=== PATIENT | female | born 1985 | race Caucasian/White ===

== ENCOUNTER 2022-12-24 08:25 | Emergency (ER) | payer OTHER, MEDICAID, SELFPAY ==
[2022-12-24] VITALS (33 sets, daily range): BP systolic 101–147; BP diastolic 56–83; PULSE 44–75; RESP 16–25; TEMP 36.4; O2SAT 97–100; BMI 37.8
[2022-12-24] MEDS: ONDANSETRON 4 MG/2 ML INJ IV (09:00)
[2022-12-24 09:14] LABS: Add Manual Diff / Slide Review NO; Basophils Absolute Auto 0 /uL (0-100); Basophils Percent Auto 0.3 % (0-2); Eosinophils Absolute Auto 0 /uL (0-450); Eosinophils Percent Auto 0.1 % (2-4); Hematocrit 40.4 % (36-46); Hemoglobin 13.3 g/dL (12.0-16.0); Lymphocytes Absolute Auto 1700 /uL (1100-4500); Lymphocytes Percent Auto 14.6 % (25-40); Mean Corpuscular HGB Conc 32.9 % (30-36); Mean Corpuscular Hemoglobin 27.5 PG (26-34); Mean Corpuscular Volume 83.6 fL (80-100); Monocytes Absolute Auto 800 /uL (0-900); Monocytes Percent Auto 6.7 % (3-14); Neutrophils Absolute Auto 8900 /uL (1500-7000); Neutrophils Percent Auto 78.3 % (50-75); Platelet Count 320 X10^3/uL (150-400); Red Blood Cell Count 4.84 X10^6/uL (4.0-5.2); Red Cell Distribution Width 15.2 % (11.6-14.8); White Blood Cell Count 11.4 X10^3/uL (4.5-11.0)
[2022-12-24 09:24] LABS: Bacteria Urine None Seen; Culture Indicated Urine Cult Not Indicated; RBC Urine None Seen (0-5/HPF); Squamous Epithelial Cell Urine 1-5 /HPF (0-5/HPF); WBC Urine 0-1/HPF (0-5/HPF)
[2022-12-24 09:25] LABS: Alanine Aminotransferase 37 IU/L (<35); Albumin 4.9 g/dL (3.5-5.0); Albumin Globulin Ratio 1.4 (1.0-2.8); Alkaline Phosphatase 67 U/L (38-126); Aspartate Aminotransferase 33 IU/L (14-36); BUN Creatinine Ratio 20.5 (6-22); Bilirubin Total 1.1 mg/dL (0.2-1.3); Blood Urea Nitrogen 16 mg/dL (7-17); Calcium 10.3 mg/dL (8.4-10.2); Carbon Dioxide 23 mmol/L (22-32); Chloride 103 mmol/L (98-107); Estimated Glomerular Filt Rate > 60 mL/min (>60); Globulin 3.6 g/dL (1.7-4.1); Glucose 94 mg/dL (70-100); HEMOLYSIS < 15 (0-50); Lipase 92 U/L (23-300); Potassium 3.6 mmol/L (3.4-5.1); Sodium 140 mmol/L (137-145); Total Protein 8.5 g/dL (6.3-8.2)
--- NOTE | 2022-12-24 09:40 | PC.NURSE ---
Pt HR 50, physician aware, no new orders.
--- NOTE | 2022-12-24 09:44 | ED.NAVMDI ---
HPI - Nausea/Vomiting/Diarrhea General Chief complaint: Nausea/Vomiting/Diarrhea Stated complaint: T-2 D/N/chills/shaking Time Seen by Provider: 12/24/22 08:47 Source: patient and family Mode of arrival: Ambulatory Limitations: no limitations History of Present Illness HPI Narrative: The patient has been ill for about 6 weeks. She complains of intermittent dizziness. She has abdominal cramping, occasional emesis. She is having regular diarrhea. There is no hematochezia. She is intermittent GI cramping. Her PCM has managed anemia. She is no other significant medical issues. She is slight ear discomfort, no chronic sinus problems or ENT problems. She is no chest pain or palpitations. She is no chronic GI issues, no history of PUD. She is status post cholecystectomy several months ago. She is no travel. She is not been on antibiotics. She is currently finishing her menstrual cycle. She is slight lower abdominal discomfort. She has no back pain, dysuria or hematuria. She feels like she is tingling all over. Related Data Previous Rx's Medication Instructions Recorded dicyclomine 20 mg tablet 20 mg PO TID #90 tabs 12/24/22 meclizine 25 mg tablet 25 mg PO QID PRN dizziness #60 tabs 12/24/22 Review of Systems Review of Systems ROS Unobtainable: All systems reviewed & are unremarkable except as noted in HPI and below Constitutional Constitutional: Denies anorexia, Denies body ache(s), Denies chills, Denies headache(s), Denies night sweats, Reports poor appetite and Reports weakness Eyes Eyes: Denies change in vision ENT Ears, Nose, Mouth, and Throat: Denies dizziness, Denies headache(s), Denies sinus pressure and Denies sore throat Cardiovascular Cardiovascular: Denies chest pain and Denies irregular heart rhythm Respiratory Respiratory: Denies chest congestion and Denies cough Gastrointestinal Gastrointestinal: Reports as per HPI Genitourinary Genitourinary: Denies dysuria and Denies urinary urgency Musculoskeletal Musculoskeletal: Denies back pain and Denies numbness Integumentary/Breasts Skin/Breast: Denies pruritus and Denies erythema Neurologic Neurologic: Denies dizziness, Denies headache(s), Denies numbness and Reports weakness Endocrine Endocrine: Reports other Hematologic/Lymphatic On Anticoagulants: No Patient History Medical History (Updated 12/24/22 @ 18:42 by Tesfaye Jain MD) Cholecystectomy planned Social History Smoking Status: Never smoker Smoking Status: Never smoker alcohol intake frequency: holidays/special occasions only Substance Use Type: marijuana Exam Initial Vital Signs Initial Vital Signs: Vital Signs Pulse Rate 73 12/24/22 08:33 Blood Pressure 142/81 H 12/24/22 08:33 Pulse Oximetry 100 12/24/22 08:33 Const General: cooperative, healthy appearing, in distress and anxious HENMT Head: normal to inspection, normocephalic and atraumatic Ears: hearing grossly normal bilaterally, external ears normal and TM's normal bilaterally Face and sinus: normal facial exam and sinuses nontender Mouth: oral mucosae normal Throat: posterior oropharynx normal Eyes General: Yes appearance normal, both eyes and all related structures Neck Neck: No lymphadenopathy Chest Chest: normal inspection of the chest Resp Effort & Inspection: normal respiratory effort Auscultation: clear to auscultation bilaterally Cardio Palpation: normal PMI Rate: regular rate Rhythm: regular rhythm Heart Sounds: S1 normal, S2 normal and no murmurs GI Other: Diffuse, mild abdominal discomfort. No guarding or rebound. Normal to hyperactive bowel sounds. No masses. Back/Spine/Pelvis Back: No CVA tenderness Skin General: no rashes or lesions noted Neuro General: patient alert, patient awake, patient oriented x3 and no focal motor deficits Cranial Nerves: CN's II-XI intact bilaterally Extrem General: normal to inspection Psych Appearance: grossly normal Mood: anxious mood Course Orders Ordered: ED Orders 12/24/22 09:57 CT abdomen pelvis w con Stat 12/24/22 13:49 GI Panel (Film Array) Stat Discontinued Medications Sodium Chloride (Normal Saline 0.9%) 500 mls @ 1,000 mls/hr IV BOLUS ONE Stop: 12/24/22 10:26 Last Infusion: 12/24/22 11:58 Dose: Infused Documented By: Admin: 12/24/22 10:00 Dose: 1,000 mls/hr Documented By: LEON Meclizine HCl (Meclizine Hcl 12.5 Mg Tablet) 50 mg PO NOW ONE Stop: 12/24/22 09:58 Last Admin: 12/24/22 10:24 Dose: 50 mg Documented By: LEON Ondansetron HCl (Ondansetron 4 Mg/2 Ml Inj) 4 mg IV NOW PRN PRN Reason: Nausea And Vomiting Last Admin: 12/24/22 09:00 Dose: 4 mg Documented By: LEON Vital Signs Vital signs: Vital Signs - 8 hr 12/24/22 11:00 12/24/22 11:01 12/24/22 11:01 Pulse Rate 46 L 44 L Respiratory Rate 24 24 Blood Pressure 128/65 Pulse Oximetry 100 100 Oxygen Delivery Method 12/24/22 11:30 12/24/22 11:33 12/24/22 11:33 Pulse Rate 58 L 54 L Respiratory Rate 22 22 Blood Pressure 116/58 L Pulse Oximetry 100 100 Oxygen Delivery Method 12/24/22 11:38 12/24/22 11:38 12/24/22 11:45 Pulse Rate 51 L Respiratory Rate 24 Blood Pressure 117/60 126/59 L Pulse Oximetry 100 Oxygen Delivery Method 12/24/22 11:45 12/24/22 11:59 12/24/22 12:00 Pulse Rate 60 55 L Respiratory Rate 21 23 Blood Pressure 120/59 L Pulse Oximetry 100 100 Oxygen Delivery Method 12/24/22 12:00 12/24/22 12:15 12/24/22 12:15 Pulse Rate 58 L 55 L Respiratory Rate Blood Pressure 120/61 Pulse Oximetry 100 100 Oxygen Delivery Method 12/24/22 12:30 12/24/22 12:31 12/24/22 12:31 Pulse Rate 58 L 54 L Respiratory Rate 24 Blood Pressure 133/66 Pulse Oximetry 100 100 Oxygen Delivery Method 12/24/22 12:45 12/24/22 12:45 12/24/22 12:45 Pulse Rate 56 L 62 Respiratory Rate 18 Blood Pressure 110/56 L 110/65 Pulse Oximetry 97 100 Oxygen Delivery Method Room Air 12/24/22 13:17 12/24/22 13:18 12/24/22 13:18 Pulse Rate 75 58 L Respiratory Rate Blood Pressure 118/58 L Pulse Oximetry 98 100 Oxygen Delivery Method 12/24/22 13:30 12/24/22 13:30 12/24/22 14:28 Pulse Rate 64 68 Respiratory Rate 24 Blood Pressure 126/71 104/58 L Pulse Oximetry 100 99 Oxygen Delivery Method 12/24/22 14:30 12/24/22 14:30 12/24/22 14:45 Pulse Rate 66 Respiratory Rate 22 Blood Pressure 104/58 L 101/57 L Pulse Oximetry 100 Oxygen Delivery Method 12/24/22 14:45 12/24/22 15:00 12/24/22 15:00 Pulse Rate 63 63 Respiratory Rate 23 23 Blood Pressure 108/65 Pulse Oximetry 99 99 Oxygen Delivery Method 12/24/22 15:15 12/24/22 15:15 12/24/22 15:30 Pulse Rate 59 L Respiratory Rate 21 Blood Pressure 102/61 104/68 Pulse Oximetry 99 Oxygen Delivery Method 12/24/22 15:30 12/24/22 16:23 Pulse Rate 62 68 Respiratory Rate 20 18 Blood Pressure 110/70 Pulse Oximetry 100 99 Oxygen Delivery Method Room Air MDM - Nausea/Vomiting/Diarrhea Lab Data 12/24/22 08:57 12/24/22 08:57 Labs: Lab Results 12/24/22 12/24/22 12/24/22 Range/Units 08:49 08:57 09:04 WBC 11.4 H (4.5-11.0) X10^3/uL RBC 4.84 (4.0-5.2) X10^6/uL Hgb 13.3 (12.0-16.0) g/dL Hct 40.4 (36-46) % MCV 83.6 (80-100) fL MCH 27.5 (26-34) PG MCHC 32.9 (30-36) % RDW 15.2 H (11.6-14.8) % Plt Count 320 (150-400) X10^3/uL Neut % (Auto) 78.3 H (50-75) % Lymph % (Auto) 14.6 L (25-40) % [place] % (Auto) 6.7 (3-14) % Eos % (Auto) 0.1 L (2-4) % Baso % (Auto) 0.3 (0-2) % Neut # (Auto) 8900 H (1548-1520) /uL Lymph # (Auto) 1700 (2923-7589) /uL [place] # (Auto) 800 (0-900) /uL Eos # (Auto) 0 (0-450) /uL Baso # (Auto) 0 (0-100) /uL Sodium 140 (137-145) mmol/L Potassium 3.6 (3.4-5.1) mmol/L Chloride 103 (98-107) mmol/L Carbon Dioxide 23 (22-32) mmol/L BUN 16 (7-17) mg/dL Creatinine 0.78 (0.52-1.04) mg/dL Estimated GFR > 60 (>60) mL/min BUN/Creatinine Ratio 20.5 (6-22) Glucose 94 (70-100) mg/dL Calcium 10.3 H (8.4-10.2) mg/dL Total Bilirubin 1.1 (0.2-1.3) mg/dL AST 33 (14-36) IU/L ALT 37 H (<35) IU/L Alkaline Phosphatase 67 (38-126) U/L Total Protein 8.5 H (6.3-8.2) g/dL Albumin 4.9 (3.5-5.0) g/dL Globulin 3.6 (1.7-4.1) g/dL Albumin/Globulin Ratio 1.4 (1.0-2.8) Lipase 92 (23-300) U/L Urine RBC None seen (0-5/HPF) Urine WBC 0-1/hpf (0-5/HPF) Ur Squamous Epith Cells 1-5 /hpf (0-5/HPF) Urine Bacteria None seen (None) Ur Culture Indicated? Cult not indicated Stl C. cayetanensis PCR (Not Detect) Stool Rotavirus (PCR) (Not Detect) Stool Adenovirus (PCR) (Not Detect) Stool Astrovirus (PCR) (Not Detect) Stool Cryptosporidium PCR (Not Detect) Stl E.coli Shiga Tox PCR (Not Detect) St Sh/Enteroin Ecoli PCR (Not Detect) Stl Enterotoxigenic E PCR (Not Detect) Stool EPEC (PCR) (Not Detect) Stl E. histolytica PCR (Not Detect) Stool Giardia Lamblia PCR (Not Detect) Stool Sapovirus (PCR) (Not Detect) Stl P. shigelloides PCR (Not Detect) St Y.enterocolitica PCR (Not Detect) Stool Vibrio (PCR) (Not Detect) Stl Vibrio cholerae PCR (Not Detect) Stl Enteroaggr Ecoli PCR (Not Detect) Stl Norovirus GI/GII PCR (Not Detect) Campylobacter (PCR) (Not Detect) C. difficile Tox (PCR) (Not Detect) SARS-CoV-2 (PCR) Negative (Negative) Influenza A (RT-PCR) Flu a negative (NEGATIVE) Influenza B (RT-PCR) Flu b negative (NEGATIVE) RSV (PCR) Negative (Negative) Salmonella (PCR) (Not Detect) 12/24/22 Range/Units 13:49 WBC (4.5-11.0) X10^3/uL RBC (4.0-5.2) X10^6/uL Hgb (12.0-16.0) g/dL Hct (36-46) % MCV (80-100) fL MCH (26-34) PG MCHC (30-36) % RDW (11.6-14.8) % Plt Count (150-400) X10^3/uL Neut % (Auto) (50-75) % Lymph % (Auto) (25-40) % [place] % (Auto) (3-14) % Eos % (Auto) (2-4) % Baso % (Auto) (0-2) % Neut # (Auto) (2586-5601) /uL Lymph # (Auto) (0887-1868) /uL [place] # (Auto) (0-900) /uL Eos # (Auto) (0-450) /uL Baso # (Auto) (0-100) /uL Sodium (137-145) mmol/L Potassium (3.4-5.1) mmol/L Chloride (98-107) mmol/L Carbon Dioxide (22-32) mmol/L BUN (7-17) mg/dL Creatinine (0.52-1.04) mg/dL Estimated GFR (>60) mL/min BUN/Creatinine Ratio (6-22) Glucose (70-100) mg/dL Calcium (8.4-10.2) mg/dL Total Bilirubin (0.2-1.3) mg/dL AST (14-36) IU/L ALT (<35) IU/L Alkaline Phosphatase (38-126) U/L Total Protein (6.3-8.2) g/dL Albumin (3.5-5.0) g/dL Globulin (1.7-4.1) g/dL Albumin/Globulin Ratio (1.0-2.8) Lipase (23-300) U/L Urine RBC (0-5/HPF) Urine WBC (0-5/HPF) Ur Squamous Epith Cells (0-5/HPF) Urine Bacteria (None) Ur Culture Indicated? Stl C. cayetanensis PCR Not detected (Not Detect) Stool Rotavirus (PCR) Not detected (Not Detect) Stool Adenovirus (PCR) Not detected (Not Detect) Stool Astrovirus (PCR) Not detected (Not Detect) Stool Cryptosporidium PCR Not detected (Not Detect) Stl E.coli Shiga Tox PCR Not detected (Not Detect) St Sh/Enteroin Ecoli PCR Not detected (Not Detect) Stl Enterotoxigenic E PCR Not detected (Not Detect) Stool EPEC (PCR) Not detected (Not Detect) Stl E. histolytica PCR Not detected (Not Detect) Stool Giardia Lamblia PCR Not detected (Not Detect) Stool Sapovirus (PCR) Not detected (Not Detect) Stl P. shigelloides PCR Not detected (Not Detect) St Y.enterocolitica PCR Not detected (Not Detect) Stool Vibrio (PCR) Not detected (Not Detect) Stl Vibrio cholerae PCR Not detected (Not Detect) Stl Enteroaggr Ecoli PCR Not detected (Not Detect) Stl Norovirus GI/GII PCR Not detected (Not Detect) Campylobacter (PCR) Not detected (Not Detect) C. difficile Tox (PCR) Not detected (Not Detect) SARS-CoV-2 (PCR) (Negative) Influenza A (RT-PCR) (NEGATIVE) Influenza B (RT-PCR) (NEGATIVE) RSV (PCR) (Negative) Salmonella (PCR) Not detected (Not Detect) Point of Care Testing Test Results Negative Stool Occult Blood Negative Urine Dip Bedside Urine Glucose Negative Bedside Urine Bilirubin - Negative Bedside Urine Ketone +++ 80 Urine Specific [place] 1.010 Bedside Urine Occult Blood ++ Bedside Urine pH 7.5 Bedside Urine Protein +/- 15 Bedside Urine Urobilinogen - Negative Bedside Urine Nitrite - Negative Bedside Urine Leukocytes - Negative Esterase Imaging Data CT scan - abdomen/pelvis: Radiologist's Impression: Moderate generalized colonic wall thickening can be seen, including involving the sigmoid colon. Please correlate with potential infectious and inflammatory causes of colitis, including C. difficile colitis. No findings of perforation or abscess can be seen. MDM Narrative Medical decision making narrative: Patient presents with 6 weeks of diarrhea, occasional nausea vomiting. She is also experiencing dizziness. She is status post cholecystectomy, no other chronic illnesses. Specifically, she is no history IBS, PUD, or GI bleeding. 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 She is given IV fluids, with meclizine. This helped her dizziness is significantly. She is able to drink. Urine output has improved. CT revealed colitis. A GI PCR showed no organism to response for the diarrhea. This raises a concern of IBS. The patient is feeling significantly better time of discharge. I am going to start her on dicyclomine for abdominal discomfort. She is been using anti diarrhea agents with limited results. She is encouraged to continue use these along with the dicyclomine if necessary. I see no indication for antibiotics. She is no PCM. I am referred to Dr. Rogers, surgery. I think she would benefit from a colonoscopy. Discharge Plan Departure Patient Disposition: Home Clinical Impression: Colitis Instructions: DI for Colitis Activity Restrictions/Additional Instructions: The evaluation did not reveal an infection to calls the colitis and diarrhea. You may need a colonoscopy for further analysis. I am going to refer you to the local surgery team. I am also going to start her on dicyclomine to help control the diarrhea and improve her hydration. Meclizine every 6 hours should help with the dizziness. I am going to give you contact information for Dr. Rogers, on-call surgery. Call his office for a consult. Prescriptions: New dicyclomine 20 mg tablet 20 mg PO TID Qty: 90 2RF meclizine 25 mg tablet 25 mg PO QID PRN (Reason: dizziness) Qty: 60 1RF Referrals: Ariel Rogers MD [Physician] - (No PCM) Misalexander,MD Dale [Primary Care Provider] - Stand Alone Forms: Patient Portal/API
--- NOTE | 2022-12-24 09:57 | DI.CT.S_ITS ---
PROCEDURE: CT ABDOMEN PELVIS W CON INDICATIONS: left lower quadrant pain TECHNIQUE: After the administration of IV contrast, axial sections were acquired from the lung bases to the pubic symphysis. Coronal and sagittal reformats were performed. For radiation dose reduction, the following was used: automated exposure control, adjustment of mA and/or kV according to patient size. COMPARISON: None. FINDINGS: Image quality: Excellent. Lung bases: Unremarkable. Heart: No significant findings. ABDOMEN: Liver: Unremarkable. Gallbladder: Removed. Biliary ducts: Unremarkable. Pancreas: Unremarkable. Spleen: Unremarkable. Incidental note is made of an accessory splenule along the inferior aspect of the primary spleen. Adrenal Glands: Unremarkable. Kidneys and Ureters: Unremarkable. Stomach and Bowel: In this patient with this given history, scrutiny is given to the sigmoid colon. Negative for diverticulitis. There is generalized moderate colonic wall thickening seen, including involving the sigmoid colon. No dilated loops of small bowel are seen. A normal appendix is noted. Peritoneum: Negative for peritoneal abscess. No abnormal intraperitoneal fluid. No free air. Ventral Wall: No hernia. Abdominal Nodes: No retroperitoneal or mesenteric adenopathy by size criteria. Vessels: Aorta and inferior vena cava are normal in size. PELVIS: Pelvic Organs: The uterus appears normal for age. No adnexal masses are seen. A menstrual cup is incidentally noted. Bladder: Unremarkable. Pelvic Nodes: No enlarged lymph nodes. Miscellaneous: No inguinal hernias are seen. Bones: Unremarkable. IMPRESSION: Moderate generalized colonic wall thickening can be seen, including involving the sigmoid colon. Please correlate with potential infectious and inflammatory causes of colitis, including C. difficile colitis. No findings of perforation or abscess can be seen. Additional findings: Cholecystectomy Accessory splenule Menstrual cup Dictated by: Enio Angel M.D. on 12/24/2022 at 9:21 Approved by: Enio Angel M.D. on 12/24/2022 at 9:24
[2022-12-24] MEDS: SODIUM CHLORIDE 0.9% 500 ML 1000 ML IV (10:00)
[2022-12-24 10:22] LABS: Influenza A - CEPHEID Flu A NEGATIVE (NEGATIVE); Influenza B - CEPHEID Flu B NEGATIVE (NEGATIVE); Respiratory Syncytial Virus Negative (Negative)
[2022-12-24 10:23] LABS: COVID-19 CEPHEID 4-PLEX PCR Negative (Negative)
[2022-12-24] MEDS: MECLIZINE HCL 12.5 MG TABLET 50 MG PO (10:24)
--- NOTE | 2022-12-24 12:01 | PC.NURSE ---
Pt HR 50, physician aware, no new orders. BP 120/59
[2022-12-24 15:19] LABS: Adenovirus F 40/41 Not Detected (Not Detect); Astrovirus Not Detected (Not Detect); Campylobacter Not Detected (Not Detect); Clostridium difficile toxin AB Not Detected (Not Detect); Cryptosporidium Not Detected (Not Detect); Cyclospora cayetanensis Not Detected (Not Detect); Entamoeba histolytica Not Detected (Not Detect); Enteroaggregative E.coli Not Detected (Not Detect); Enteropathogenic E.coli Not Detected (Not Detect); Enterotoxigenic E.coli It/st Not Detected (Not Detect); Giardia lamblia Not Detected (Not Detect); Norovirus GI/GII Not Detected (Not Detect); Plesiomonsa shigelloides Not Detected (Not Detect); Rotavirus A Not Detected (Not Detect); Salmonella Not Detected (Not Detect); Sapovirus Not Detected (Not Detect); Shiga-like toxin-prod E.coli Not Detected (Not Detect); Shigella/Enteroinvasive E.coli Not Detected (Not Detect); Vibrio Not Detected (Not Detect); Vibrio cholerae Not Detected (Not Detect); Yersinia enterocolitica Not Detected (Not Detect)
== END 2022-12-24 16:39 | disposition home or self-care (01) ==
PROVIDERS: Emergency Provider Emergency Medicine
DX: K52.9 Noninfective gastroenteritis and colitis, unspecified (principal); Z20.822 Contact with and (suspected) exposure to COVID-19
CPT/HCPCS: 0241U; 36415; 74177; 80053; 81003; 81015; 81025; 82272; 83690; 85025; 87507; 96361; 96374; 99284; J2405; Q9967

== ENCOUNTER 2023-02-01 11:05 | Emergency (ER) | payer OTHER, MEDICAID, SELFPAY ==
[2023-02-01 11:09] VITALS: BP 123/84; PULSE 64; RESP 20; TEMP 36.9; O2SAT 100; BMI 34.3
[2023-02-01] MEDS: ACETAMINOPHEN 325 MG TABLET 650 MG PO (12:00)
[2023-02-01] MEDS: TET,DIPH,PERTUSS(ACELL),VAC/PF 0.5 ML SYRINGE IM (12:00)
--- NOTE | 2023-02-01 12:01 | ED.WOUNDLAC ---
HPI - Wound/Laceration <ISATU Alvarado - Last Filed: 02/01/23 12:09> General Chief Complaint: Wound/Laceration Stated Complaint: sent by [facility], toenail ripped off R/big toe Time Seen by Provider: 02/01/23 11:09 Source: patient Mode of arrival: Ambulatory History of Present Illness HPI narrative: 37-year-old female, never smoker, presents to the emergency department with a right great toe nail avulsion secondary to the nail getting caught on bed sheets at home earlier today. Patient was evaluated in the walk-in clinic but it was determined the ER may be better for treatment options. Right great toenail, proximal medial corner of nail plate appears to be pulled out of nailbed and nail is intact. Patient in visible discomfort. Tetanus is overdue. Related Data Previous Rx's Medication Instructions Recorded dicyclomine 20 mg tablet 20 mg PO TID #90 tabs 12/24/22 meclizine 25 mg tablet 25 mg PO QID PRN dizziness #60 tabs 12/24/22 Allergies Allergy/AdvReac Type Severity Reaction Status Date / Time No Known Drug Allergies Allergy Verified 02/01/23 11:12 Review of Systems <ISATU Alvarado - Last Filed: 02/01/23 12:09> Review of Systems Narrative: Narrative: See HPI. GENERAL: Denies chills, fatigue, fever, sweats. HEENT: Denies sinus pain, ear pain, sore throat, difficulty swallowing, dizziness. RESPIRATORY: Denies dyspnea, cough, wheezing, sputum. CARDIOVASCULAR: Denies chest pain, palpitations, edema. GASTROINTESTINAL: Denies nausea, vomiting, abdominal pain, diarrhea, constipation. MSK: Denies weakness, joint pain, or bony pain. SKIN: Denies rash, skin lesions, or pruritis. Endorses right great toenail avulsion. NEUROLOGIC: Denies weakness, dizziness, headache, numbness, confusion. Patient History <ISATU Alvarado - Last Filed: 02/01/23 12:09> Medical History Cholecystectomy planned Social History Smoking Status: Never smoker Smoking Status: Never smoker alcohol intake frequency: holidays/special occasions only Substance Use Type: marijuana Exam <ISATU Alvarado - Last Filed: 02/01/23 12:09> Narrative Exam Narrative: Exam Narrative: GENERAL: This is a well-nourished, well-developed patient, in no acute distress. HEAD: Atraumatic. Normocephalic. EYES: Pupils equal round and reactive. No scleral icterus, injection or drainage. ENT: Nose without bleeding, purulent drainage. Airway patent. NECK: Trachea midline. No JVD. RESPIRATORY: Normal respiratory rate and effort. MSK: Moves all extremities. Normal range of motion, no clubbing or edema. Neurovascularly intact. NEURO: A&O x 3. SKIN: Warm, dry, no rashes or lesions noted. Right great toenail, proximal medial corner of nail plate appears to be pulled out of nailbed with nail intact. Initial Vital Signs Initial Vital Signs: Vital Signs Temperature 98.4 F 02/01/23 11:09 Pulse Rate 64 02/01/23 11:09 Respiratory Rate 20 02/01/23 11:09 Blood Pressure 123/84 02/01/23 11:09 Pulse Oximetry 100 02/01/23 11:09 Oxygen Delivery Method Room Air 02/01/23 11:09 Reviewed <Yuliya Cobb DO - Last Filed: 02/01/23 17:43> Initial Vital Signs Initial Vital Signs: Vital Signs Temperature 98.4 F 02/01/23 11:09 Pulse Rate 64 02/01/23 11:09 Respiratory Rate 20 02/01/23 11:09 Blood Pressure 123/84 02/01/23 11:09 Pulse Oximetry 100 02/01/23 11:09 Oxygen Delivery Method Room Air 02/01/23 11:09 Procedures <ISATU Alvarado - Last Filed: 02/01/23 12:09> [facility] [place] Procedure Name of Procedure: Right great toenail avulsion repair Location: Right great toenail Technique/Description of procedure performed: Anesthetized of great toe with 5 mL of 1% lidocaine and avulsion was reinserted with use of forceps. Patient tolerated procedure: Well Course <ISATU Alvarado - Last Filed: 02/01/23 12:09> Orders Ordered: Discontinued Medications Acetaminophen (Acetaminophen 325 Mg Tablet) 650 mg PO NOW ONE Stop: 02/01/23 11:56 Last Admin: 02/01/23 12:00 Dose: 650 mg Documented By: MPO Diphtheria/Tetanus/Acell Pertussis (Tet,Diph,Pertuss(Acell),Vac/Pf 0.5 Ml Syringe) 0.5 ml IM .ONCE ONE Stop: 02/01/23 11:56 Last Admin: 02/01/23 12:00 Dose: 0.5 ml Documented By: MPO Vital Signs Vital signs: Vital Signs - 8 hr 02/01/23 11:09 Temperature 98.4 F Pulse Rate 64 Respiratory Rate 20 Blood Pressure 123/84 Pulse Oximetry 100 Oxygen Delivery Method Room Air <Yuliya Cobb DO - Last Filed: 02/01/23 17:43> Orders Ordered: Discontinued Medications Acetaminophen (Acetaminophen 325 Mg Tablet) 650 mg PO NOW ONE Stop: 02/01/23 11:56 Last Admin: 02/01/23 12:00 Dose: 650 mg Documented By: PRIYANK Diphtheria/Tetanus/Acell Pertussis (Tet,Diph,Pertuss(Acell),Vac/Pf 0.5 Ml Syringe) 0.5 ml IM .ONCE ONE Stop: 02/01/23 11:56 Last Admin: 02/01/23 12:00 Dose: 0.5 ml Documented By: MPO Vital Signs Vital signs: Vital Signs - 8 hr 02/01/23 11:09 Temperature 98.4 F Pulse Rate 64 Respiratory Rate 20 Blood Pressure 123/84 Pulse Oximetry 100 Oxygen Delivery Method Room Air MDM - Wound/Laceration <ISATU Alvarado - Last Filed: 02/01/23 12:09> Differential Diagnosis Differential diagnosis: Likely other (Toenail avulsion) MDM Narrative Medical decision making narrative: 37-year-old female with right great toenail avulsion. Site was anesthetized with 5 mL of 1% lidocaine and with use of forceps, was able to reinsert the proximal medial edge the toenail. Patient tolerated procedure well but with some discomfort and anxiety. Tetanus status updated. Tylenol given for discomfort. Discussed signs and symptoms of infection along with return precautions with patient and , who verbalized understanding and were agreeable with course of action. Discharge Plan Departure Patient Disposition: Home Clinical Impression: Avulsed toenail Qualifiers: Encounter type: initial encounter Qualified Code(s): S91.209A - Unspecified open wound of unspecified toe(s) with damage to nail, initial encounter Instructions: DI for Wound Infection Activity Restrictions/Additional Instructions: *You have been diagnosed with great toenail avulsion. We were able to numb the toe and replace the toenail. You will probably eventually lose the toenail, but will be able to grow new toenails after reinsertion. We have updated your tetanus status, which should be good for 10 years. Watch for signs of infection that include increased redness, warmth, swelling or yellow discharge. If this occurs, follow up with your family doctor or the walk-in clinic for possible antibiotic therapy. *What to do: *Please continue to take your regular medications as directed. [ ] New medication prescriptions sent to your pharmacy: [ ] [ ] New medication written as a paper prescription [ x] No new medications given *Please follow up with your primary care provider in 2-3 days, call for an appointment. Let them know you were seen in the Emergency Department and that we ask that you be seen in follow up. We will electronically transmit a record of today's note if your PCP is in our system *If you do not have a primary care provider please contact the [facility] Resource line at [phone]. They will ask some questions about your medical history and help get you set up with a doctor in the community. ? Return to ER if you should have any new, worsening or concerning symptoms, such as worsening pain, severe headache, confusion, chest pain, difficulty breathing, fever greater than 101 F, shaking chills, persistent vomiting to the point that you cannot drink fluids, or other new or worsening symptoms. Prescriptions: No Action dicyclomine 20 mg tablet 20 mg PO TID Qty: 90 2RF meclizine 25 mg tablet 25 mg PO QID PRN (Reason: dizziness) Qty: 60 1RF Referrals: Miscellaneous,Doctor, [Primary Care Provider] - Stand Alone Forms: Patient Portal/API ED Sign-out <Yuliya Cobb DO - Last Filed: 02/01/23 17:43> Cosign ED Attending Inga Attestation: I was immediately available in the department for consultation. Documentation has been reviewed.
== END 2023-02-01 12:00 | disposition home or self-care (01) ==
PROVIDERS: Emergency Provider Registered Nurse
DX: S91.209A Unspecified open wound of unspecified toe(s) with damage to nail, initial encounter (principal); S91.201A Unspecified open wound of right great toe with damage to nail, initial encounter; X58.XXXA Exposure to other specified factors, initial encounter; Z23 Encounter for immunization
CPT/HCPCS: 90471; 99283; 90715

== ENCOUNTER 2023-02-20 11:26 | Emergency (ER) | payer OTHER, MEDICAID, SELFPAY ==
[2023-02-20 11:35] VITALS: BP 129/77; PULSE 80; RESP 14; TEMP 36.5; O2SAT 100; BMI 37.5
--- NOTE | 2023-02-20 12:00 | ED.RECABL ---
HPI - Recheck/Abnormal Lab/Rx <Giovana Davis PA-C - Last Filed: 02/20/23 15:57> General Chief Complaint: Recheck/Abnormal Lab/Rx Stated Complaint: dr lopez sent reactions to meds Time Seen by Provider: 02/20/23 11:42 Source: patient Mode of arrival: Ambulatory History of Present Illness HPI narrative: Patient is a 37-year-old female who presents with severe anxiety, emotional lability, nausea, diarrhea, palpitations and sleeplessness after starting prazosin for PTSD/sleep. She started the medication on 02/06 and after a few days, increased the dose to 2 mg. She notified her doctor's office and they encouraged her to come to the emergency room due to concern for dehydration. They also advised her to titrate off the medication. She reports having dark urine, 3-4 episodes of diarrhea a day, decreased appetite although able to tolerate fluids, and dry mouth. She denies abdominal pain, chest pain, fever, chills or suicidal ideation. She reports she has had to take 2 doses of Xanax this morning for a total of 1 mg due to her symptoms. She is very tearful and states she never has take that much. She does not want to be like this. She feels terrible. She does not feel suicidal but her anxiety is out of control. Related Data Previous Rx's Medication Instructions Recorded dicyclomine 20 mg tablet 20 mg PO TID #90 tabs 12/24/22 meclizine 25 mg tablet 25 mg PO QID PRN dizziness #60 tabs 12/24/22 prazosin 1 mg capsule 1 mg PO BEDTIME #30 caps 02/06/23 clonazepam 0.5 mg tablet 0.5 mg PO BID #14 tabs 02/20/23 Allergies Allergy/AdvReac Type Severity Reaction Status Date / Time Influenza Virus Vaccines Allergy Severe Anaphylaxis Verified 02/20/23 11:39 Review of Systems <Giovana Davis PA-C - Last Filed: 02/20/23 15:57> Review of Systems ROS Unobtainable: All systems reviewed & are unremarkable except as noted in HPI and below Patient History <Giovana Davis PA-C - Last Filed: 02/20/23 15:57> Medical History Cholecystectomy planned Social History Smoking Status: Former smoker Smoking Status: Former smoker alcohol intake frequency: holidays/special occasions only Substance Use Type: marijuana Exam <Giovana Davis PA-C - Last Filed: 02/20/23 15:57> Narrative Exam Narrative: GENERAL: 37 year old patient appears stated age. Well-developed patient, tearful, appears anxious and uncomfortable. NEURO: AOx3. HEAD: Atraumatic. Normocephalic. EYES: Pupils equal round and reactive. Extraocular motions intact. No scleral icterus. No injection or drainage. ENT: Nose without bleeding or purulent drainage. Airway patent. RESPIRATORY: No distress. EXTREMITIES: No edema or joint tenderness. SKIN: No rash or erythema of visible areas Initial Vital Signs Initial Vital Signs: Vital Signs Temperature 97.7 F 02/20/23 11:35 Pulse Rate 80 02/20/23 11:35 Respiratory Rate 14 02/20/23 11:35 Blood Pressure 129/77 02/20/23 11:35 Pulse Oximetry 100 02/20/23 11:35 Oxygen Delivery Method Room Air 02/20/23 11:35 <Patrick Donald DO - Last Filed: 02/20/23 16:15> Initial Vital Signs Initial Vital Signs: Vital Signs Temperature 97.7 F 02/20/23 11:35 Pulse Rate 80 02/20/23 11:35 Respiratory Rate 14 02/20/23 11:35 Blood Pressure 129/77 02/20/23 11:35 Pulse Oximetry 100 02/20/23 11:35 Oxygen Delivery Method Room Air 02/20/23 11:35 Course <Giovana Davis PA-C - Last Filed: 02/20/23 15:57> Orders Ordered: Discontinued Medications Sodium Chloride (Normal Saline 0.9%) 1,000 mls @ 1,000 mls/hr IV BOLUS ONE Stop: 02/20/23 12:53 Last Infusion: 02/20/23 12:44 Dose: Infused Documented By: Admin: 02/20/23 12:06 Dose: 1,000 mls/hr Documented By: AMJazlyn Lorazepam (Lorazepam 2 Mg/Ml Inj) 0.5 mg IV NOW ONE Stop: 02/20/23 11:55 Last Admin: 02/20/23 12:06 Dose: 0.5 mg Documented By: AMV Vital Signs Vital signs: Vital Signs - 8 hr 02/20/23 11:35 02/20/23 13:12 Temperature 97.7 F Pulse Rate 80 86 Respiratory Rate 14 16 Blood Pressure 129/77 114/62 Pulse Oximetry 100 98 Oxygen Delivery Method Room Air Room Air <Patrick Donald DO - Last Filed: 02/20/23 16:15> Orders Ordered: Discontinued Medications Sodium Chloride (Normal Saline 0.9%) 1,000 mls @ 1,000 mls/hr IV BOLUS ONE Stop: 02/20/23 12:53 Last Infusion: 02/20/23 12:44 Dose: Infused Documented By: Admin: 02/20/23 12:06 Dose: 1,000 mls/hr Documented By: AMV Lorazepam (Lorazepam 2 Mg/Ml Inj) 0.5 mg IV NOW ONE Stop: 02/20/23 11:55 Last Admin: 02/20/23 12:06 Dose: 0.5 mg Documented By: AMV Vital Signs Vital signs: Vital Signs - 8 hr 02/20/23 11:35 02/20/23 13:12 Temperature 97.7 F Pulse Rate 80 86 Respiratory Rate 14 16 Blood Pressure 129/77 114/62 Pulse Oximetry 100 98 Oxygen Delivery Method Room Air Room Air MDM - Recheck/Abnormal Lab/Rx <Giovana Davis PA-C - Last Filed: 02/20/23 15:57> [facility] Narrative Medical decision making narrative: Multiple etiologies for patient's symptoms considered including, but not limited to: Adverse drug reaction, panic attack, dehydration. Reviewed primary care notes including initiation of the prazosin. Patient does not appear dehydrated and there are no signs on physical exam but I agree that IV fluid rehydration may help the patient feel better today as well as a dose of IV lorazepam. She is accompanied by her very supportive partner. We will reassess after IV fluids and Ativan. Patient feels better after IV fluids and 0.5 mg IV Ativan. Discussed continuing taper of the prazosin over the next 3 days. Discussed switching alprazolam to clonazepam given longer effect, which will likely help regulate her symptoms better. Discussed benefits and risks of benzodiazepine use. Patient very tearful, worried that people will think I am weak and people will label me as a drug seeker. Provided therapeutic glistening, normalization of what she is feeling, discussion of appropriate use of benzodiazepines in acute setting such as this. Encouraged her to establish care with a mental health therapist and consider seeing a psychiatrist for ongoing treatment of her nightmares and PTSD. Partner continues to be very supportive. Patient appears to appreciate the help and states she will consider these suggestions. She has an appointment with her primary care on 02/27 for reassessment. If her symptoms are not adequately controlled or if she is other concerns, she is welcome to return to the emergency room at any time. Patient's symptoms improved over duration of stay with above-stated therapies. Findings and discharge diagnosis discussed with patient/family followed by verbalization of understanding Return precautions discussed with patient/family whom verbalize understanding of diagnosis and plan Discharge Plan Departure Patient Disposition: Home Clinical Impression: Anxiety Adverse drug reaction Qualifiers: Encounter type: initial encounter Qualified Code(s): T50.905A - Adverse effect of unspecified drugs, medicaments and biological substances, initial encounter Instructions: DI for Anxiety -- Adult Activity Restrictions/Additional Instructions: *You have been diagnosed with an adverse drug reaction to the prazosin. As we discussed, you should taper off of this over the next several days. I have changed your medication to a different benzodiazepine called clonazepam. This is a much longer acting medication. You only need to take it twice a day and only if needed. The benefit of this medicine is that it will last longer, although it takes a little longer to start working after you take it. Just like the other benzos medicines, this medicine is potentially diff. Do not take it when you do not need to. Follow up as scheduled with your primary care on 02/27 for reassessment. Do not also take the Xanax or any other medications that make you sleepy. As we discussed, I strongly encourage you to establish care with a mental health counselor or therapist as well as following up with your primary care. You should also consider seeing a psychiatrist for management of your PTSD symptoms. Please remember that you are definitely not weak, you are very strong and that is why you are here seeking help. There is help for you and you can feel better and be present as a mom and a partner. It was a pleasure taking care of you today and I do hope you feel better soon. *What to do: *Please continue to take your regular medications as directed. [x] New medication prescriptions sent to your pharmacy: [facility] [ ] New medication written as a paper prescription [ ] No new medications given *Please follow up with your primary care provider in 2-3 days, call for an appointment. Let them know you were seen in the Emergency Department and that we ask that you be seen in follow up. We will electronically transmit a record of today's note if your PCP is in our system *If you do not have a primary care provider please contact the [facility] Resource line at [phone]. They will ask some questions about your medical history and help get you set up with a doctor in the community. *Return to Emergency Department if you should have any new, worsening or concerning symptoms, such as [fever greater than 101 F, shaking chills, worsening pain, persistent vomiting or other concerning symptoms]. Prescriptions: New clonazepam 0.5 mg tablet 0.5 mg PO BID Qty: 14 0RF Rx Instructions: do not combine with other sedative medications such as alprazolam or melatonin. do not drink alcohol while using this medication. Do not drive while using this medication. Discontinued alprazolam 0.5 mg tablet 0.5 mg PO DAILY Qty: 30 0RF No Action prazosin 1 mg capsule 1 mg PO BEDTIME Qty: 30 0RF dicyclomine 20 mg tablet 20 mg PO TID Qty: 90 2RF meclizine 25 mg tablet 25 mg PO QID PRN (Reason: dizziness) Qty: 60 1RF Referrals: Serenity Saldaña DO [Primary Care Provider] - Stand Alone Forms: Patient Portal/API ED Sign-out <Patrick Donald DO - Last Filed: 02/20/23 16:15> [facility]: Dr Donald Co-Sign Statement: I was available for consultation during this patient's emergency department visit. This chart is signed by myself for administrative purposes only. I did not have direct contact with this patient during this visit. They were seen independently by the APC.
[2023-02-20] MEDS: SODIUM CHLORIDE 0.9% 1,000 ML 1000 ML IV (12:06)
[2023-02-20] MEDS: LORazepam 2 MG/ML INJ 0.5 MG IV (12:06)
--- NOTE | 2023-02-20 12:10 | PC.NURSE ---
Pt states she recently started prazasosin and started to experience high anxiety, jittery feelings, and tearful. Pt was sent here by her PCP for med reaction
--- NOTE | 2023-02-20 12:44 | PC.NURSE ---
Pt states she is feeling better after the ativan
[2023-02-20 13:12] VITALS: BP 114/62; PULSE 86; RESP 16; O2SAT 98
== END 2023-02-20 13:13 | disposition home or self-care (01) ==
PROVIDERS: Emergency Provider Physician Assistant; PCP Family Medicine
DX: F41.9 Anxiety disorder, unspecified (principal); T44.6X5A Adverse effect of alpha-adrenoreceptor antagonists, initial encounter; Y92.009 Unspecified place in unspecified non-institutional (private) residence as the place of occurrence of the external cause
CPT/HCPCS: 96374; 99283; J2060

== ENCOUNTER 2023-09-24 17:21 | Emergency (ER) | payer OTHER, MEDICAID, SELFPAY ==
[2023-09-24 17:27] VITALS: BP 131/58; PULSE 54; RESP 18; TEMP 37.1; O2SAT 99; BMI 37.8
--- NOTE | 2023-09-24 17:41 | EKG_ITS ---
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
--- NOTE | 2023-09-24 17:44 | DI.RAD.S_ITS ---
PROCEDURE: XR CHEST 1V INDICATIONS: chest pain TECHNIQUE: One view of the chest was acquired. COMPARISON: None. FINDINGS: Surgical changes and devices: None. Lungs and pleura: Lungs are clear. No pleural effusions or pneumothorax. Mediastinum: Mediastinal contours appear normal. Heart size is normal. Bones and chest wall: No suspicious bony lesions. Overlying soft tissues appear unremarkable. IMPRESSION: No acute cardiopulmonary abnormality is seen. Dictated by: Steve Manrique M.D. on 09/24/2023 at 17:27 Approved by: Steve Manrique M.D. on 09/24/2023 at 17:27
--- NOTE | 2023-09-24 17:46 | PC.NURSE ---
Left sided CP starting last night; left breast drainage (white and bloody) starting this morning. Associated left arm pain. Pt states the last time she saw her OB was in 2021. Pt denies family hx of breast cancer or colon cancer
[2023-09-24 17:53] LABS: Prothrombin Time 11.9 SECONDS (9.4-12.5)
[2023-09-24 17:56] LABS: PTT Partial Thromboplastin Tim 38 SECONDS (25.1-36.5)
[2023-09-24 17:58] LABS: Add Manual Diff / Slide Review NO; Alanine Aminotransferase 13 IU/L (<35); Albumin 4.6 g/dL (3.5-5.0); Albumin Globulin Ratio 1.6 (1.0-2.8); Alkaline Phosphatase 44 U/L (38-126); Aspartate Aminotransferase 22 IU/L (14-36); BUN Creatinine Ratio 18.2 (6-22); Basophils Absolute Auto 0 /uL (0-100); Basophils Percent Auto 0.3 % (0-2); Bilirubin Total 0.4 mg/dL (0.2-1.3); Blood Urea Nitrogen 12 mg/dL (7-17); Calcium 9.2 mg/dL (8.4-10.2); Carbon Dioxide 27 mmol/L (22-32); Chloride 104 mmol/L (98-107); Creatine Kinase 70 U/L (30-135); Eosinophils Absolute Auto 100 /uL (0-450); Eosinophils Percent Auto 0.9 % (2-4); Estimated Glomerular Filt Rate > 60 mL/min (>60); Globulin 2.8 g/dL (1.7-4.1); Glucose 95 mg/dL (70-100); HEMOLYSIS < 15 (0-50); Hematocrit 39.7 % (36-46); Hemoglobin 13.3 g/dL (12.0-16.0); Lipase 87 U/L (23-300); Lymphocytes Absolute Auto 2800 /uL (1100-4500); Lymphocytes Percent Auto 29.1 % (25-40); Magnesium 1.9 mg/dL (1.6-2.3); Mean Corpuscular HGB Conc 33.5 % (30-36); Mean Corpuscular Hemoglobin 28.6 PG (26-34); Mean Corpuscular Volume 85.5 fL (80-100); Monocytes Absolute Auto 900 /uL (0-900); Monocytes Percent Auto 9.1 % (3-14); Neutrophils Absolute Auto 5900 /uL (1500-7000); Neutrophils Percent Auto 60.6 % (50-75); Platelet Count 316 X10^3/uL (150-400); Potassium 3.9 mmol/L (3.4-5.1); Red Blood Cell Count 4.64 X10^6/uL (4.0-5.2); Red Cell Distribution Width 13.9 % (11.6-14.8); Sodium 139 mmol/L (137-145); Total Protein 7.4 g/dL (6.3-8.2); White Blood Cell Count 9.7 X10^3/uL (4.5-11.0)
[2023-09-24 18:10] LABS: NT-proBNP (BNP-Adult 18+) 66 pg/mL (<125); Troponin I < 0.012 ng/mL (0.01-0.034)
--- NOTE | 2023-09-24 19:08 | ED_ITS ---
HPI - Chest Pain General Chief Complaint: Chest Pain Stated Complaint: tender lft brst white bloody discharge Time Seen by Provider: 09/24/23 18:49 Source: patient Mode of arrival: Ambulatory Limitations: no limitations History of Present Illness HPI narrative: Patient is a 38-year-old healthy female presenting today with significantly tender left breast. She reports that it started maybe last night she gets sharp shooting pain this morning however she touched it was excruciating. She has not had fever no erythema she does report discharge from her nipple is sometimes bloody. She reports that her periods are extremely irregular she is having hot flashes at night. She denies chest pain or shortness of breath. She has never had a mammogram she just turned 38 this week she got a notification in the mail she does not do self breast exams Related Data Previous Rx's Medication Instructions Recorded dicyclomine 20 mg tablet 20 mg PO TID #90 tabs 12/24/22 meclizine 25 mg tablet 25 mg PO QID PRN dizziness #60 tabs 12/24/22 alprazolam 0.5 mg tablet 0.5 mg PO DAILY PRN anxiety #30 09/11/23 tabs Allergies Allergy/AdvReac Type Severity Reaction Status Date / Time Influenza Virus Vaccines Allergy Severe Anaphylaxis Verified 09/24/23 17:30 prazosin Allergy Severe N/V/D, Verified 09/24/23 17:30 sleeplessness Patient History Medical History Painful menstrual periods Irregular menstrual cycle Irritable bowel syndrome Posttraumatic stress disorder Cholecystectomy planned Surgical History Anesthesia History of ankle surgery History of cholecystectomy Social History Smoking Status: Former smoker Smoking Status: Former smoker alcohol intake frequency: holidays/special occasions only Substance Use Type: marijuana Exam Initial Vital Signs Initial Vital Signs: Vital Signs Temperature 98.8 F 09/24/23 17:27 Pulse Rate 54 L 09/24/23 17:27 Respiratory Rate 18 09/24/23 17:27 Blood Pressure 131/58 L 09/24/23 17:27 Pulse Oximetry 99 09/24/23 17:27 Oxygen Delivery Method Room Air 09/24/23 17:27 GENERAL: Alert well-appearing 38-year-old female HEENT: Head atraumatic,EOMI, pupils reactive, face symmetric, moist mucous membranes EARS: Canals are clear bilaterally no significant erythema or drainage CARDIOVASCULAR: Regular rate and rhythm without murmurs, rubs or gallops. RESPIRATORY: Breath sounds equal bilaterally, no wheezes rales or rhonchi. BREAST: Left breast fibrous no obvious masses no erythema no fluctuance and I do not appreciate any nipple discharge at time no induration ABDOMEN: Soft, nontender. Normoactive bowel sounds all 4 quadrants. No guarding or rebound. EXTREMITIES: Normal range of motion, no clubbing or edema. Neurovascularly intact NEUROLOGICAL: Alert and oriented x4.Normal gait and speech. Cranial nerves II through XII grossly intact. SKIN: Warm, dry, no laceration, no petechiae, no rashes or lesions. Course Orders Ordered: ED Orders 09/24/23 17:32 Complete Blood Count AUTO DIFF Stat Comprehensive Metabolic Panel Stat Lipase Stat Magnesium Stat NT-proBNP (BNP-Adult 18+) Stat PTT Partial Thromboplastin Jose Eduardo Stat Prothrombin Time INR Stat Troponin & CK Cardiac Panel Stat 09/24/23 17:44 XR chest 1V Stat EKG-12 Lead Stat 09/24/23 19:17 US breast LT limited Stat Discontinued Medications Ketorolac Tromethamine (Ketorolac 30 Mg/Ml Vial) 15 mg IV NOW ONE Stop: 09/24/23 19:19 Last Admin: 09/24/23 19:24 Dose: 15 mg Documented By: NICHOLAS Vital Signs Vital signs: Vital Signs - 8 hr 09/24/23 17:27 09/24/23 20:28 Temperature 98.8 F Pulse Rate 54 L 53 L Respiratory Rate 18 16 Blood Pressure 131/58 L 123/65 Pulse Oximetry 99 93 Oxygen Delivery Method Room Air Room Air MDM - Chest Pain Lab Data 09/24/23 17:32 09/24/23 17:32 Labs: Lab Results 09/24/23 Range/Units 17:32 WBC 9.7 (4.5-11.0) X10^3/uL RBC 4.64 (4.0-5.2) X10^6/uL Hgb 13.3 (12.0-16.0) g/dL Hct 39.7 (36-46) % MCV 85.5 (80-100) fL MCH 28.6 (26-34) PG MCHC 33.5 (30-36) % RDW 13.9 (11.6-14.8) % Plt Count 316 (150-400) X10^3/uL Neut % (Auto) 60.6 (50-75) % Lymph % (Auto) 29.1 (25-40) % Harrison % (Auto) 9.1 (3-14) % Eos % (Auto) 0.9 L (2-4) % Baso % (Auto) 0.3 (0-2) % Neut # (Auto) 5900 (1842-9515) /uL Lymph # (Auto) 2800 (6731-3675) /uL Harrison # (Auto) 900 (0-900) /uL Eos # (Auto) 100 (0-450) /uL Baso # (Auto) 0 (0-100) /uL PT 11.9 (9.4-12.5) SECONDS INR 1.0 (0.9-1.3) APTT 38 H (25.1-36.5) SECONDS Sodium 139 (137-145) mmol/L Potassium 3.9 (3.4-5.1) mmol/L Chloride 104 (98-107) mmol/L Carbon Dioxide 27 (22-32) mmol/L BUN 12 (7-17) mg/dL Creatinine 0.66 (0.52-1.04) mg/dL Estimated GFR > 60 (>60) mL/min BUN/Creatinine Ratio 18.2 (6-22) Glucose 95 (70-100) mg/dL Calcium 9.2 (8.4-10.2) mg/dL Magnesium 1.9 (1.6-2.3) mg/dL Total Bilirubin 0.4 (0.2-1.3) mg/dL AST 22 (14-36) IU/L ALT 13 (<35) IU/L Alkaline Phosphatase 44 (38-126) U/L Total Creatine Kinase 70 (30-135) U/L Troponin I < 0.012 (0.01-0.034) ng/mL NT-Pro-B Natriuret Pep 66 (<125) pg/mL Total Protein 7.4 (6.3-8.2) g/dL Albumin 4.6 (3.5-5.0) g/dL Globulin 2.8 (1.7-4.1) g/dL Albumin/Globulin Ratio 1.6 (1.0-2.8) Lipase 87 (23-300) U/L Point of Care Testing Test Results Negative Imaging Data US breast: Radiologist's Impression: PROCEDURE:US BREAST LT LIMITED COMPARISON:None. INDICATIONS:SHARP PAIN, BLOODY NIPPLE DISCHARGE FINDINGS:Normal examination. IMPRESSION:No abnormality found. Follow-up dedicated mammography appears warranted in this clinical circumstance. Dictated by: Russ Sharma M.D. on 09/24/2023 at 20:09 Approved by: Russ Sharma M.D. on 09/24/2023 at 20:10 Chest x-ray: Radiologist's Impression: PROCEDURE: XR CHEST 1V INDICATIONS: chest pain TECHNIQUE: One view of the chest was acquired. COMPARISON: None. FINDINGS: Surgical changes and devices: None. Lungs and pleura: Lungs are clear. No pleural effusions or pneumothorax. Mediastinum: Mediastinal contours appear normal. Heart size is normal. Bones and chest wall: No suspicious bony lesions. Overlying soft tissues appear unremarkable. IMPRESSION: No acute cardiopulmonary abnormality is seen. Dictated by: Steve Manrique M.D. on 09/24/2023 at 17:27 MDM Narrative Medical decision making narrative: Patient 38-year-old female presenting today onset of significant left-sided breast tenderness and oral discharge. She is afebrile it is extremely tender to touch. She has some discharge and then a little bloody. She has not yet had a mammogram. She has no breast masses on exam. She is having some perimenopausal symptoms with insomnia hot flashes night sweats irregular periods. Breast ultrasound is negative for mass and abscess. Chest x-ray does not show any cardiopulmonary process Blood work has been reviewed in his overall reassuring without evidence of leukocytosis or infection. Troponin is also negative. EKG does not show any evidence of ischemia Patient may have ductal ectasia or hyperprolactinemia. Breast cancer does need to be ruled out needs mammogram. She is feeling better after Toradol No real evidence of abscess or mastitis at this time. At this time supportive care warm compresses and follow-up with PCP. Discharge Plan Departure Patient Disposition: Home Clinical Impression: Nipple discharge in female, Breast pain Activity Restrictions/Additional Instructions: *You have been diagnosed with breast pain *What to do: At this time you do need a mammogram to rule out any sort of cancer however ultrasound today was overall reassuring. Also suspect that you may be in perimenopause with such fluctuation of flashes and night sweats. Talk with your PCP about hormonal testing or hormone replacement therapy to see if it is right for you I would also do some warm compresses or ice and massage *Continue to take medications as directed Motrin 600 mg every 6 hours if needed for [id number] pain Tylenol 1000 mg every 6 hours if needed for cprv-qm-pygzoyqm pain *Follow up with your primary care provider in 2-3 days or call [phone] *Return to ER if you should have increasing pain fever redness [or] any new, worsening or concerning symptoms Prescriptions: No Action alprazolam 0.5 mg tablet 0.5 mg PO DAILY PRN (Reason: anxiety) Qty: 30 0RF dicyclomine 20 mg tablet 20 mg PO TID Qty: 90 2RF meclizine 25 mg tablet 25 mg PO QID PRN (Reason: dizziness) Qty: 60 1RF Referrals: Serenity Saldaña DO [Primary Care Provider] - Stand Alone Forms: Patient Portal/API
--- NOTE | 2023-09-24 19:17 | DI.US.S_ITS ---
PROCEDURE: US BREAST LT LIMITED COMPARISON: None. INDICATIONS: SHARP PAIN, BLOODY NIPPLE DISCHARGE FINDINGS: Normal examination. IMPRESSION: No abnormality found. Follow-up dedicated mammography appears warranted in this clinical circumstance. Dictated by: Russ Sharma M.D. on 09/24/2023 at 20:09 Approved by: Russ Sharma M.D. on 09/24/2023 at 20:10
[2023-09-24] MEDS: KETOROLAC 30 MG/ML VIAL 15 MG IV (19:24)
[2023-09-24 20:28] VITALS: BP 123/65; PULSE 53; RESP 16; O2SAT 93
== END 2023-09-24 20:25 | disposition home or self-care (01) ==
PROVIDERS: Emergency Medicine; Emergency Provider Emergency Medicine; PCP Family Medicine
DX: N64.4 Mastodynia (principal); N64.52 Nipple discharge; R07.9 Chest pain, unspecified
CPT/HCPCS: 36415; 71045; 76642; 80053; 81025; 82550; 83690; 83735; 83880; 84484; 85025; 85610; 85730; 93005; 96374; 99284; J1885

== ENCOUNTER → 2023-10-27 08:51 | Outpatient (CLI) | payer OTHER, MEDICAID, SELFPAY ==
--- NOTE | 2023-10-27 | DI.US.S_ITS ---
LIMITED ULTRASOUND OF LEFT BREAST: 10/27/2023 CLINICAL: Follow up from addtional views. Comparison is made to exams dated: 10/27/2023 mammogram and 09/24/2023 [place] [facility] - . Real-time ultrasound of the left breast retroareolar was performed. No sonographic abnormality is seen in the retroareolar region. IMPRESSION: NEGATIVE No sonographic abnormality in the retroareolar region. No mammographic or sonographic evidence of malignancy. A 1 year screening mammogram is recommended. Nipple discharge that is non-spontaneous and bilateral or from multiple ducts in the same breast is typically benign or physiologic. Clinical follow-up is recommended, and further management of nipple discharge should be based on the results of clinical evaluation. If nipple discharge persists and/or increases in clinical suspicion, further clinical evaluation should be considered. Findings and recommendations were conveyed to the patient during today's evaluation. This exam was interpreted at Station ID: [id number]. Electronically Signed By: Carole Cole M.D., Ph.D. eb/:10/27/2023 11:21:16 letter sent: Clinical Evaluation Ultrasound BI-RADS: 1 Negative
--- NOTE | 2023-10-27 08:53 | DI.MG.S_ITS ---
BILATERAL DIGITAL DIAGNOSTIC MAMMOGRAM 3D/2D: 10/27/2023 CLINICAL: Baseline exam. Left breast retroareolar pain with spontaneous and non-spontaneous left nipple discharge (green and bloody discharge) that lasted for approximately 1 week and has now resolved. Comparison is made to exam dated: 09/24/2023 [facility]. There are scattered areas of fibroglandular density in both breasts (category b / 25%-50% glandular tissue). No significant masses, calcifications, or other findings are seen in either breast. Additional mammographic views of the subareolar region demonstrate no mammographic abnormality. IMPRESSION: INCOMPLETE: NEEDS ADDITIONAL IMAGING EVALUATION No mammographic evidence of malignancy. Recommend further evaluation with targeted breast ultrasound, which will immediately follow this exam. Based on the Tyrer Cuzick model (a risk assessment model) the patient's lifetime risk is 6.3% and her 10 year risk is 0.8%. According to the ACR, ACS, and NCCN guidelines, an annual breast MRI exam along with mammogram is recommended if the patient's lifetime risk is 20% or greater. This exam was interpreted at Station ID: [id number]. NOTE: For mammograms, a report in lay terms will be sent to the patient. Approximately 15% of breast malignancies will not be visualized mammographically. In the management of a palpable breast mass, a negative mammogram must not discourage biopsy of a clinically suspicious lesion. Electronically Signed By: Carole Cole M.D., Ph.D. eb/:10/27/2023 09:47:30 ACR BI-RADS Category 0: Incomplete [id number]
== END ==
PROVIDERS: PCP Family Medicine; Referring Provider Family Medicine; Visit Provider Family Medicine
DX: R92.2 Inconclusive mammogram (principal); N64.52 Nipple discharge; N64.4 Mastodynia; R92.323 Mammographic fibroglandular density, bilateral breasts
CPT/HCPCS: 76642; 77066; G0279

== ENCOUNTER → 2023-11-04 08:30 | Outpatient (CLI) | payer OTHER, MEDICAID, SELFPAY ==
[2023-11-04 09:54] LABS: Add Manual Diff / Slide Review NO; Basophils Absolute Auto 0 /uL (0-100); Basophils Percent Auto 0.5 % (0-2); Eosinophils Absolute Auto 100 /uL (0-450); Eosinophils Percent Auto 1.2 % (2-4); Hematocrit 38.5 % (36-46); Hemoglobin 12.7 g/dL (12.0-16.0); Lymphocytes Absolute Auto 1600 /uL (1100-4500); Lymphocytes Percent Auto 24.8 % (25-40); Mean Corpuscular HGB Conc 33.1 % (30-36); Mean Corpuscular Hemoglobin 28.4 PG (26-34); Mean Corpuscular Volume 85.8 fL (80-100); Monocytes Absolute Auto 500 /uL (0-900); Monocytes Percent Auto 8.7 % (3-14); Neutrophils Absolute Auto 4100 /uL (1500-7000); Neutrophils Percent Auto 64.8 % (50-75); Platelet Count 297 X10^3/uL (150-400); Red Blood Cell Count 4.49 X10^6/uL (4.0-5.2); Red Cell Distribution Width 14.3 % (11.6-14.8); White Blood Cell Count 6.3 X10^3/uL (4.5-11.0)
[2023-11-04 10:11] LABS: Alanine Aminotransferase 13 IU/L (<35); Albumin 4.4 g/dL (3.5-5.0); Albumin Globulin Ratio 1.8 (1.0-2.8); Alkaline Phosphatase 43 U/L (38-126); Aspartate Aminotransferase 24 IU/L (14-36); BUN Creatinine Ratio 21.9 (6-22); Bilirubin Total 0.5 mg/dL (0.2-1.3); Blood Urea Nitrogen 16 mg/dL (7-17); Calcium 9.6 mg/dL (8.4-10.2); Carbon Dioxide 26 mmol/L (22-32); Chloride 105 mmol/L (98-107); Estimated Glomerular Filt Rate > 60 mL/min (>60); Globulin 2.4 g/dL (1.7-4.1); Glucose 84 mg/dL (70-100); HEMOLYSIS < 15 (0-50); Potassium 4.5 mmol/L (3.4-5.1); Sodium 138 mmol/L (137-145); Total Protein 6.8 g/dL (6.3-8.2)
[2023-11-04 10:25] LABS: Prolactin 17.9 ng/mL (3.0-18.6)
[2023-11-04 10:40] LABS: TSH w/ Reflex to FT4 1.24 uIU/mL (0.47-4.68)
== END ==
PROVIDERS: PCP Family Medicine; Referring Provider Family Medicine; Visit Provider Family Medicine
DX: G47.00 Insomnia, unspecified (principal); N94.6 Dysmenorrhea, unspecified; N92.6 Irregular menstruation, unspecified; K58.9 Irritable bowel syndrome, unspecified; F43.10 Post-traumatic stress disorder, unspecified; Z63.4 Disappearance and death of family member; Z63.79 Other stressful life events affecting family and household; Z83.49 Family history of other endocrine, nutritional and metabolic diseases; R61 Generalized hyperhidrosis; F41.9 Anxiety disorder, unspecified; N64.52 Nipple discharge
CPT/HCPCS: 36415; 80053; 82306; 82670; 84144; 84146; 84402; 84403; 84443; 84999; 85025

== ENCOUNTER 2023-12-31 13:32 | Emergency (ER) | payer OTHER, MEDICAID, SELFPAY ==
[2023-12-31] VITALS (7 sets, daily range): BP systolic 108–114; BP diastolic 60–70; PULSE 59–75; RESP 16; TEMP 36.8; O2SAT 93–100; BMI 37.8
[2023-12-31] MEDS: ONDANSETRON 4 MG/2 ML INJ IV (14:16)
[2023-12-31 14:17] LABS: Add Manual Diff / Slide Review NO; Basophils Absolute Auto 0 /uL (0-100); Basophils Percent Auto 0.4 % (0-2); Eosinophils Absolute Auto 100 /uL (0-450); Eosinophils Percent Auto 0.9 % (2-4); Hematocrit 39.9 % (36-46); Hemoglobin 13.2 g/dL (12.0-16.0); Lymphocytes Absolute Auto 2700 /uL (1100-4500); Lymphocytes Percent Auto 29.8 % (25-40); Mean Corpuscular HGB Conc 33.1 % (30-36); Mean Corpuscular Hemoglobin 28.3 PG (26-34); Mean Corpuscular Volume 85.7 fL (80-100); Monocytes Absolute Auto 800 /uL (0-900); Monocytes Percent Auto 9.2 % (3-14); Neutrophils Absolute Auto 5400 /uL (1500-7000); Neutrophils Percent Auto 59.7 % (50-75); Platelet Count 352 X10^3/uL (150-400); Red Blood Cell Count 4.65 X10^6/uL (4.0-5.2); Red Cell Distribution Width 14.7 % (11.6-14.8)
--- NOTE | 2023-12-31 14:26 | ED.ABDPAIN ---
HPI - Abdominal Pain General Chief Complaint: Abdominal Pain Stated Complaint: Rt side fland and abd px Time Seen by Provider: 12/31/23 13:50 Source: patient Mode of arrival: Ambulatory History of Present Illness HPI narrative: 38-year-old female with history of prior remote cholecystectomy, recent abdominal pain problems, had upper and lower endoscopy 2 months ago without specific diagnosis identified, now with 2 days duration right-sided upper mid lower abdominal discomfort, worse deep breathing, not responsive to ibuprofen. Some nausea, no emesis, had loose stool earlier today somewhat painful, no black or red stool, no mucoid color to stool. No injury or trauma. No blood thinner medications. No established history of Crohn's disease, inflammatory bowel disease, celiac sprue. Advised in the past to take antacid, which she did not take, but prior abdominal pain seemed to have been getting better. Related Data Previous Rx's Medication Instructions Recorded dicyclomine 20 mg tablet 20 mg PO TID #90 tabs 12/24/22 meclizine 25 mg tablet 25 mg PO QID PRN dizziness #60 tabs 12/24/22 alprazolam 0.5 mg tablet 0.5 mg PO DAILY PRN anxiety #30 10/30/23 tabs fluconazole 150 mg tablet 150 mg PO DAILY #2 tabs 10/30/23 lactulose 20 gram/30 mL oral 20 g (30 mL) PO BID #300 mL 12/31/23 solution Allergies Allergy/AdvReac Type Severity Reaction Status Date / Time Influenza Virus Vaccines Allergy Severe Anaphylaxis Verified 10/30/23 10:15 prazosin Allergy Severe N/V/D, Verified 10/30/23 10:15 sleeplessness Review of Systems Review of Systems Narrative: See HPI Patient History Medical History Painful menstrual periods Irregular menstrual cycle Irritable bowel syndrome Posttraumatic stress disorder Cholecystectomy planned Surgical History Anesthesia History of ankle surgery History of cholecystectomy Social History Smoking Status: Former smoker Smoking Status: Former smoker alcohol intake frequency: holidays/special occasions only Substance Use Type: marijuana Exam Narrative Exam Narrative: GENERAL: Well-developed patient, in mild distress. HEAD: Atraumatic. Normocephalic. EYES: Pupils equal round and reactive. Extraocular motions intact. No scleral icterus. No injection or drainage. ENT: Nose without bleeding, purulent drainage. Throat without erythema, tonsillar hypertrophy or exudate. Airway patent. NECK: Trachea midline. Non tender CARDIOVASCULAR: Regular rate and rhythm without murmurs, gallops, or rubs. RESPIRATORY: Clear to auscultation. Breath sounds equal bilaterally. No wheezes, rales, or rhonchi. GASTROINTESTINAL: Abdominal tenderness right upper quadrant, right middle quadrant, right lower quadrant, no distention, no rebound tenderness, unremarkable bowel tones. EXTREMITIES: No edema or joint tenderness. BACK: Nontender without deformity or crepitance. No flank tenderness. NEURO: AOx3. Motor functions grossly nonfocal SKIN: No rash or erythema of visible areas Initial Vital Signs Initial Vital Signs: Vital Signs Temperature 98.3 F 12/31/23 13:37 Pulse Rate 74 12/31/23 13:37 Respiratory Rate 16 12/31/23 13:37 Blood Pressure 114/70 12/31/23 13:37 Pulse Oximetry 100 12/31/23 13:37 Oxygen Delivery Method Room Air 12/31/23 13:37 Course Orders Ordered: ED Orders 12/31/23 14:00 Complete Blood Count AUTO DIFF Stat Comprehensive Metabolic Panel Stat Lipase Stat 12/31/23 14:38 CT abdomen pelvis w con Stat Discontinued Medications Hydromorphone HCl (Hydromorphone 1 Mg Inj) 0.5 mg IV NOW ONE Stop: 12/31/23 14:35 Last Admin: 12/31/23 14:43 Dose: 0.5 mg Documented By: JERICA Ondansetron HCl (Ondansetron 4 Mg/2 Ml Inj) 4 mg IV NOW PRN PRN Reason: Nausea And Vomiting Last Admin: 12/31/23 14:16 Dose: 4 mg Documented By: JERICA Ondansetron HCl (Ondansetron 4 Mg Odt) 4 mg PO NOW PRN PRN Reason: Nausea And Vomiting Ondansetron HCl (Ondansetron 4 Mg/2 Ml Inj) 4 mg IV NOW ONE Stop: 12/31/23 14:35 Vital Signs Vital signs: Vital Signs - 8 hr 12/31/23 13:37 12/31/23 14:01 12/31/23 14:07 Temperature 98.3 F Pulse Rate 74 75 59 L Respiratory Rate 16 Blood Pressure 114/70 Pulse Oximetry 100 93 100 Oxygen Delivery Method Room Air 12/31/23 14:07 12/31/23 14:30 12/31/23 14:30 Temperature Pulse Rate 66 Respiratory Rate Blood Pressure 108/60 110/62 Pulse Oximetry 99 Oxygen Delivery Method 12/31/23 15:00 12/31/23 15:21 12/31/23 15:21 Temperature Pulse Rate 74 66 Respiratory Rate Blood Pressure 110/69 Pulse Oximetry 100 99 Oxygen Delivery Method 12/31/23 15:30 Temperature Pulse Rate 67 Respiratory Rate Blood Pressure Pulse Oximetry 99 Oxygen Delivery Method MDM - Abdominal Pain Lab Data Attestation: I reviewed the patient's lab results. 12/31/23 14:00 12/31/23 14:00 Labs: Lab Results 12/31/23 Range/Units 14:00 WBC 9.0 (4.5-11.0) X10^3/uL RBC 4.65 (4.0-5.2) X10^6/uL Hgb 13.2 (12.0-16.0) g/dL Hct 39.9 (36-46) % MCV 85.7 (80-100) fL MCH 28.3 (26-34) PG MCHC 33.1 (30-36) % RDW 14.7 (11.6-14.8) % Plt Count 352 (150-400) X10^3/uL Neut % (Auto) 59.7 (50-75) % Lymph % (Auto) 29.8 (25-40) % Thurston % (Auto) 9.2 (3-14) % Eos % (Auto) 0.9 L (2-4) % Baso % (Auto) 0.4 (0-2) % Neut # (Auto) 5400 (6128-1469) /uL Lymph # (Auto) 2700 (6731-8496) /uL Thurston # (Auto) 800 (0-900) /uL Eos # (Auto) 100 (0-450) /uL Baso # (Auto) 0 (0-100) /uL Sodium 138 (137-145) mmol/L Potassium 3.6 (3.4-5.1) mmol/L Chloride 103 (98-107) mmol/L Carbon Dioxide 26 (22-32) mmol/L BUN 11 (7-17) mg/dL Creatinine 0.65 (0.52-1.04) mg/dL Estimated GFR > 60 (>60) mL/min BUN/Creatinine Ratio 16.9 (6-22) Glucose 93 (70-100) mg/dL Calcium 9.3 (8.4-10.2) mg/dL Total Bilirubin 0.6 (0.2-1.3) mg/dL AST 24 (14-36) IU/L ALT 15 (<35) IU/L Alkaline Phosphatase 49 (38-126) U/L Total Protein 7.5 (6.3-8.2) g/dL Albumin 4.6 (3.5-5.0) g/dL Globulin 2.9 (1.7-4.1) g/dL Albumin/Globulin Ratio 1.6 (1.0-2.8) Lipase 61 (23-300) U/L Point of care testing: Point of Care Testing Test Results Negative Urine Dip Bedside Urine Glucose Negative Bedside Urine Bilirubin - Negative Bedside Urine Ketone - Negative Urine Specific Gorman 1.020 Bedside Urine Occult Blood - Negative Bedside Urine pH 6.0 Bedside Urine Protein - Negative Bedside Urine Urobilinogen - Negative Bedside Urine Nitrite - Negative Imaging Data CT scan - abdomen/pelvis: Radiologist's Impression: [place] [address] CT Scan Report Signed Patient: Jamila Lawson MR#: [id number] : 1985 Acct:[id number] Age/Sex: 38 / F Date of Service: 12/31/23 Loc: ED Accession Number: [id number] Procedure: CT abdomen pelvis w con Ordering Provider: Pepe Rivera MD PROCEDURE: CT ABDOMEN PELVIS W CON INDICATIONS: Right-sided abdominal pain, tenderness, prior alex TECHNIQUE: After the administration of intravenous contrast, axial sections acquired from the lung bases to the pubic symphysis. Coronal and sagittal reformats were performed. For radiation dose reduction, the following was used: automated exposure control, adjustment of mA and/or kV according to patient size. COMPARISON: [facility], CT, CT ABDOMEN PELVIS W CON, 12/24/2022, 10:06. FINDINGS: Image quality: Diagnostic. Lower Chest: No significant findings. ABDOMEN: Liver: No solid mass. Liver is enlarged measuring 20.5 cm with steatosis. Gallbladder: Removed. Biliary ducts: No biliary dilation. Pancreas: No ductal dilation. Spleen: Size is within normal limits. Adrenal Glands: No adrenal nodules. Kidneys and Ureters: No hydronephrosis. No solid mass. No complex renal cystic lesion which requires follow up. Stomach and Bowel: Normal colonic caliber, without significant wall thickening. Moderate colonic stool without obstruction. Appendix is normal. Minimal scattered diverticula without associated inflammatory change. Peritoneum: No abnormal intraperitoneal fluid. No free air. Ventral Wall: No significant ventral hernia. Abdominal Nodes: No retroperitoneal or mesenteric adenopathy by size criteria. Vessels: Aorta and inferior vena cava are normal in size. PELVIS: Pelvic Organs: Unremarkable. Bladder: No bladder wall thickening, accounting for underdistention. Pelvic Nodes: No enlarged lymph nodes. Miscellaneous: No inguinal hernias are seen. Bones: No aggressive osseous abnormality. IMPRESSION: Moderate colonic stool without obstruction. Hepatomegaly with steatosis. Dictated by: Gabby Montoya M.D. on 12/31/2023 at 15:26 Approved by: Gabby Montoya M.D. on 12/31/2023 at 15:28 [facility] [place] Narrative Medical decision making narrative: 38-year-old female with history of remote cholecystectomy, has recent upper and lower GI endoscopy 2 months ago, now with right-sided abdominal discomfort, painful loose stool. Afebrile, sirs screen negative. Some tenderness on right upper quadrant as well as right middle quadrant and lower quadrant. Nondistended, no guarding or rebound tenderness. Labs pending. Keep NPO White blood cell count 9000, hemoglobin normal, platelets unremarkable. CMP unremarkable including LFTs, lipase normal. Urine dip negative. Urine hCG negative. Patient still quite uncomfortable after IV Dilaudid/Zofran. We will image, patient agreeable, CT abdomen and pelvis ordered. CT abdomen and pelvis shows fatty liver changes, moderate constipation changes, no obstruction, no acute changes. See radiology report. Trial of oral laxative at home, avoid opiates. Copy of CT report given to patient/. Discharge Plan Departure Patient Disposition: Home Clinical Impression: Abdominal pain, Constipation Activity Restrictions/Additional Instructions: History of recurrent/chronic abdominal discomfort, prior upper and lower endoscopy 2 months ago, also known to have remote gallbladder surgical removal, with right-sided abdominal pain, painless full bowel movement recent. No fever on triage. Some tenderness right-sided on examination. Laboratory studies unremarkable, test negative. CT scan was obtained due to persisting pain despite Dilaudid. CT showed moderate colonic stool burden, no obstruction, no acute changes, incidental fatty liver noted. Your liver functions were actually normal. Unclear if the fatty liver is actually related to any of your pain symptoms, not usually the case. Possible abdominal discomfort due to constipation, 1 year colon is peristalsing trying to remove the hard cement sludge like sections of colonic stool. Trial of [id number] MiraLax. If this does not work you could consider lactulose prescription, sent to your pharmacy if he choose to use this instead, or from MiraLax is not working. Recheck if symptoms not improved with laxative therapy. Follow up further with your regular doctor and/or GI specialists as planned. Return earlier to this/nearest emergency department for any change worsening symptoms or any concerns prior Prescriptions: New lactulose 20 gram/30 mL solution 20 g PO BID Qty: 300 0RF No Action fluconazole 150 mg tablet 150 mg PO DAILY Qty: 2 3RF alprazolam 0.5 mg tablet 0.5 mg PO DAILY PRN (Reason: anxiety) Qty: 30 0RF dicyclomine 20 mg tablet 20 mg PO TID Qty: 90 2RF meclizine 25 mg tablet 25 mg PO QID PRN (Reason: dizziness) Qty: 60 1RF Referrals: Serenity Saldaña DO [Primary Care Provider] - Stand Alone Forms: Patient Portal/API
[2023-12-31 14:27] LABS: Alanine Aminotransferase 15 IU/L (<35); Albumin 4.6 g/dL (3.5-5.0); Albumin Globulin Ratio 1.6 (1.0-2.8); Alkaline Phosphatase 49 U/L (38-126); Aspartate Aminotransferase 24 IU/L (14-36); BUN Creatinine Ratio 16.9 (6-22); Bilirubin Total 0.6 mg/dL (0.2-1.3); Blood Urea Nitrogen 11 mg/dL (7-17); Calcium 9.3 mg/dL (8.4-10.2); Carbon Dioxide 26 mmol/L (22-32); Chloride 103 mmol/L (98-107); Estimated Glomerular Filt Rate > 60 mL/min (>60); Globulin 2.9 g/dL (1.7-4.1); Glucose 93 mg/dL (70-100); HEMOLYSIS < 15 (0-50); Lipase 61 U/L (23-300); Potassium 3.6 mmol/L (3.4-5.1); Sodium 138 mmol/L (137-145); Total Protein 7.5 g/dL (6.3-8.2)
--- NOTE | 2023-12-31 14:38 | DI.CT.S_ITS ---
PROCEDURE: CT ABDOMEN PELVIS W CON INDICATIONS: Right-sided abdominal pain, tenderness, prior alex TECHNIQUE: After the administration of intravenous contrast, axial sections acquired from the lung bases to the pubic symphysis. Coronal and sagittal reformats were performed. For radiation dose reduction, the following was used: automated exposure control, adjustment of mA and/or kV according to patient size. COMPARISON: [facility], CT, CT ABDOMEN PELVIS W CON, 12/24/2022, 10:06. FINDINGS: Image quality: Diagnostic. Lower Chest: No significant findings. ABDOMEN: Liver: No solid mass. Liver is enlarged measuring 20.5 cm with steatosis. Gallbladder: Removed. Biliary ducts: No biliary dilation. Pancreas: No ductal dilation. Spleen: Size is within normal limits. Adrenal Glands: No adrenal nodules. Kidneys and Ureters: No hydronephrosis. No solid mass. No complex renal cystic lesion which requires follow up. Stomach and Bowel: Normal colonic caliber, without significant wall thickening. Moderate colonic stool without obstruction. Appendix is normal. Minimal scattered diverticula without associated inflammatory change. Peritoneum: No abnormal intraperitoneal fluid. No free air. Ventral Wall: No significant ventral hernia. Abdominal Nodes: No retroperitoneal or mesenteric adenopathy by size criteria. Vessels: Aorta and inferior vena cava are normal in size. PELVIS: Pelvic Organs: Unremarkable. Bladder: No bladder wall thickening, accounting for underdistention. Pelvic Nodes: No enlarged lymph nodes. Miscellaneous: No inguinal hernias are seen. Bones: No aggressive osseous abnormality. IMPRESSION: Moderate colonic stool without obstruction. Hepatomegaly with steatosis. Dictated by: Gabby Montoya M.D. on 12/31/2023 at 15:26 Approved by: Gabby Montoya M.D. on 12/31/2023 at 15:28
[2023-12-31] MEDS: HYDROMORPHONE 1 MG INJ 0.5 MG IV (14:43)
== END 2023-12-31 16:18 | disposition home or self-care (01) ==
PROVIDERS: Emergency Provider Emergency Medicine; PCP Family Medicine
DX: R10.11 Right upper quadrant pain (principal); K59.00 Constipation, unspecified
CPT/HCPCS: 36415; 74177; 80053; 81003; 81025; 83690; 85025; 96374; 96375; 99284; J1171; J2405; Q9967

== ENCOUNTER → 2024-02-17 07:46 | Outpatient (CLI) | payer OTHER, MEDICAID, SELFPAY ==
--- NOTE | 2024-02-17 07:47 | DI.MRI.S_ITS ---
BREAST MRI OF THE LEFT BREAST: 02/17/2024 CLINICAL: Left nipple discharge. PROCEDURE: MR BREAST BI WO/W CON INDICATIONS: left bloody discharge x 2-3 times TECHNIQUE: The patient was placed prone in a dedicated breast imaging coil. Precontrast axial STIR and 3D FLASH without fat saturation sequences were obtained. Both before and after bolus injection of contrast, sequential 1-minute axial 3D FLASH with fat saturation sequences for 3 time points, with subtraction images and maximum intensity projections (MIP's) generated. Delayed sagittal FLASH images with fat saturation were also obtained. Computer-aided detection, including computer algorithm analysis of MRI image data for lesion detection and characterization, pharmacokinetic analysis, with further physician review for interpretation, was performed. COMPARISON: Mammogram 10/27/2023, left breast ultrasound 09/24/2023 and 10/27/2023. FINDINGS: Image quality: Diagnostic. The breasts are predominantly fatty. There is mild and symmetric background parenchymal enhancement. Right breast: There is no suspicious enhancement or lymphadenopathy. Left breast: There is no suspicious enhancement or lymphadenopathy. IMPRESSION: NEGATIVE No MRI evidence of malignancy. If patient is continuing to have spontaneous bloody nipple discharge, recommend consultation with breast surgeon. Future imaging is recommended as follows: 10/27/2024 screening mammogram. This exam was interpreted at Station ID: [id number]. Electronically Signed By: Carole Cole M.D., Ph.D. eb/:02/18/2024 02:25:23 letter sent: Clinical Evaluation ACR BI-RADS Category 1: Negative
== END ==
PROVIDERS: PCP Family Medicine; Referring Provider Family Medicine; Visit Provider Family Medicine
DX: N64.4 Mastodynia (principal); N64.52 Nipple discharge
CPT/HCPCS: 77049; A9579

== ENCOUNTER 2024-08-19 08:20 | Emergency (ER) | payer OTHER, SELFPAY ==
[2024-08-19] VITALS (15 sets, daily range): BP systolic 103–156; BP diastolic 52–80; PULSE 54–82; RESP 18; TEMP 36.4–37.1; O2SAT 99–100; BMI 35.2
--- NOTE | 2024-08-19 08:39 | PC.NURSE ---
Pt sitting on stretcher, RA, breathing even/equal/unlabored. Call light within reach, provider at bedside
--- NOTE | 2024-08-19 08:52 | ED_ITS ---
HPI - Abdominal Pain General Chief Complaint: Abdominal Pain Stated Complaint: sick since thursday, panic attack currently Time Seen by Provider: 08/19/24 08:24 Source: patient Mode of arrival: Family Vehicle History of Present Illness HPI narrative: 38-year-old female status post cholecystectomy, history of PTSD and anxiety, here with 3 days of vomiting and diarrhea. Diarrhea has improved with loperamide and Pepto-Bismol but she has not been able to keep fluids down she says for 72 hours. No known fever. No blood in stool. She has associated epigastric abdominal discomfort. Denies EtOH use. Denies history of GERD or gastritis/peptic ulcer. Last menstrual period was 1 week ago. Related Data Previous Rx's Medication Instructions Recorded progesterone micronized 100 mg 100 mg PO QAM #30 caps 01/28/24 capsule sulfamethoxazole 800 1 tab PO BID #10 tabs 02/01/24 mg-trimethoprim 160 mg tablet (Bactrim DS) fluconazole 150 mg tablet 150 mg PO DAILY #2 tabs 02/03/24 alprazolam 0.5 mg tablet 0.5 mg PO DAILY PRN anxiety #30 07/04/24 tabs ondansetron 4 mg disintegrating 4 mg PO Q8H 4 days #12 tabs 08/19/24 tablet Allergies Allergy/AdvReac Type Severity Reaction Status Date / Time Influenza Virus Vaccines Allergy Severe Anaphylaxis Verified 08/19/24 08:29 prazosin Allergy Severe N/V/D, Verified 08/19/24 08:29 sleeplessness Review of Systems Review of Systems Narrative: Negative except as stated in HPI Patient History Medical History Painful menstrual periods Irregular menstrual cycle Irritable bowel syndrome Posttraumatic stress disorder Cholecystectomy planned Surgical History Anesthesia History of ankle surgery History of cholecystectomy Social History Smoking Status: Former smoker Smoking Status: Former smoker tobacco type: cigarettes alcohol intake frequency: holidays/special occasions only Exam Initial Vital Signs Initial Vital Signs: Vital Signs Blood Pressure 156/65 H 08/19/24 08:24 Constitutional: 38-year-old female resting in the bed, anxious appearing and tearful Head: NCAT Cardiovascular: RRR, no murmur or rub, 2+ radial pulses Pulmonary: CTA bilaterally, no respiratory distress Abdominal: soft, epigastric discomfort to palpation Extremities: No LE edema Skin: warm and dry, no diaphoresis Neurological: Alert and oriented x3, normal speech Course Orders Ordered: Discontinued Medications Al Hydrox/Mg Hydrox/Simethicone (Mag Hydrox/Alum/Simeth 30 Ml Udc) 30 ml PO NOW ONE Stop: 08/19/24 08:59 Last Admin: 08/19/24 09:43 Dose: 30 ml Documented By: LM Famotidine (Famotidine 20 Mg/2 Ml Vial) 20 mg IV NOW DIMAS Last Admin: 08/19/24 09:43 Dose: 20 mg Documented By: LM Sodium Chloride (Normal Saline 0.9%) 1,000 mls @ 1,000 mls/hr IV BOLUS ONE Stop: 08/19/24 09:38 Last Infusion: 08/19/24 10:43 Dose: Infused Documented By: Infusion: 08/19/24 09:50 Dose: 0 mls/hr Documented By: Infusion: 08/19/24 09:49 Dose: 0 mls/hr Documented By: Admin: 08/19/24 09:03 Dose: 1,000 mls/hr Documented By: YOSI Lorazepam (Lorazepam 2 Mg/Ml Inj) 0.5 mg IV NOW ONE Stop: 08/19/24 08:40 Last Admin: 08/19/24 09:54 Dose: Not Given Documented By: YOSI Lorazepam (Lorazepam 0.5 Mg Tablet) 1 mg PO NOW ONE Stop: 08/19/24 09:58 Last Admin: 08/19/24 10:19 Dose: 1 mg Documented By: LM Ondansetron HCl (Ondansetron 4 Mg/2 Ml Inj) 4 mg IV NOW ONE Stop: 08/19/24 08:40 Last Admin: 08/19/24 09:04 Dose: 4 mg Documented By: LM Vital Signs Vital signs: Vital Signs - 8 hr 08/19/24 08:24 08/19/24 08:25 08/19/24 08:28 Temperature Pulse Rate 82 Respiratory Rate Blood Pressure 156/65 H 127/56 L Pulse Oximetry 99 Oxygen Delivery Method 08/19/24 08:28 08/19/24 08:29 08/19/24 08:30 Temperature 97.6 F Pulse Rate 75 78 74 Respiratory Rate 18 Blood Pressure 113/52 L Pulse Oximetry 100 99 100 Oxygen Delivery Method Room Air 08/19/24 08:31 08/19/24 08:31 08/19/24 08:54 Temperature Pulse Rate 71 63 Respiratory Rate Blood Pressure 113/52 L Pulse Oximetry 100 99 Oxygen Delivery Method 08/19/24 08:54 08/19/24 09:00 08/19/24 09:00 Temperature Pulse Rate 65 Respiratory Rate Blood Pressure 116/80 114/66 Pulse Oximetry 100 Oxygen Delivery Method 08/19/24 09:30 08/19/24 09:30 08/19/24 10:00 Temperature Pulse Rate 63 Respiratory Rate Blood Pressure 129/64 119/63 Pulse Oximetry 100 Oxygen Delivery Method 08/19/24 10:00 08/19/24 10:11 08/19/24 10:11 Temperature Pulse Rate 54 L 62 Respiratory Rate Blood Pressure 119/64 Pulse Oximetry 100 100 Oxygen Delivery Method 08/19/24 10:30 08/19/24 10:30 Temperature Pulse Rate 56 L Respiratory Rate Blood Pressure 115/58 L Pulse Oximetry 99 Oxygen Delivery Method MDM - Abdominal Pain Medical Records Medical records narrative: Differential diagnoses considered in this patient include exacerbation of anxiety, gastroenteritis or viral syndrome, gastritis or GERD, peptic ulcer. I think less likely retained stone or acute pancreatitis. We will send laboratories, give IV fluids, Zofran, Ativan (takes for anxiety) and reassess Laboratories no leukocytosis. There is modest LFT elevation without elevated bili and normal lipase. Urinalysis is contaminated but there are WBCs bacteria and RBCs. Patient denies any UTI symptoms. It will go to culture; will defer any antibiotics at this time. I rechecked the patient and abdominal exam is benign. She reports that she still has some slight abdominal discomfort but it is much improved. She is reporting some intermittent chest discomfort, worse with vomiting, worse with moving her chest after having felt a pull when reaching across her body days 2 weeks ago. I think this is musculoskeletal pain or potentially related to GI illness (ie GERD), did offer to broaden workup include EKG/troponin but patient declines, ?I do not think I need that. ? Patient is overall feeling better. She is tolerating p.o.. Counseled her on signs symptoms of gastroenteritis which I think is likely the diagnosis in this scenario. She has multiple children and at home with n/v/d. We discussed pain management at home and symptom management at home. Offered prescription for Zofran Return precautions discussed and provided prior to discharge Lab Data 08/19/24 08:54 08/19/24 08:54 Labs: Lab Results 08/19/24 08/19/24 Range/Units 08:44 08:54 WBC 10.3 (4.5-11.0) X10^3/uL RBC 5.03 (4.0-5.2) X10^6/uL Hgb 13.9 (12.0-16.0) g/dL Hct 41.5 (36-46) % MCV 82.5 (80-100) fL MCH 27.7 (26-34) PG MCHC 33.5 (30-36) % RDW 14.8 (11.6-14.8) % Plt Count 363 (150-400) X10^3/uL Neut % (Auto) 80.9 H (50-75) % Lymph % (Auto) 11.4 L (25-40) % Spencer % (Auto) 7.3 (3-14) % Eos % (Auto) 0.2 L (2-4) % Baso % (Auto) 0.2 (0-2) % Neut # (Auto) 8400 H (2858-8503) /uL Lymph # (Auto) 1200 (1987-2361) /uL Spencer # (Auto) 800 (0-900) /uL Eos # (Auto) 0 (0-450) /uL Baso # (Auto) 0 (0-100) /uL Sodium 137 (137-145) mmol/L Potassium 3.7 (3.4-5.1) mmol/L Chloride 101 (98-107) mmol/L Carbon Dioxide 21 L (22-32) mmol/L BUN 14 (7-17) mg/dL Creatinine 0.74 (0.52-1.04) mg/dL Estimated GFR > 60 (>60) mL/min BUN/Creatinine Ratio 18.9 (6-22) Glucose 92 (70-99) mg/dL Calcium 9.8 (8.4-10.2) mg/dL Total Bilirubin 1.0 (0.2-1.3) mg/dL AST 62 H (14-36) IU/L ALT 36 H (<35) IU/L Alkaline Phosphatase 60 (38-126) U/L Total Protein 8.0 (6.3-8.2) g/dL Albumin 4.8 (3.5-5.0) g/dL Globulin 3.2 (1.7-4.1) g/dL Albumin/Globulin Ratio 1.5 (1.0-2.8) Lipase 71 (23-300) U/L Urine RBC 5-10/hpf H (0-5/HPF) Urine WBC 10-30/hpf H (0-5/HPF) Ur Squamous Epith Cells 5-10 /hpf H (0-5/HPF) Urine Bacteria Moderate (10-30) H (None) Urine Mucus 1+ H (Negative) Ur Culture Indicated? Specimen cultured Vol Urine Centrifuged 10ml (spun) Point of care testing: Point of Care Testing Test Results Negative Urine Dip Bedside Urine Glucose Negative Bedside Urine Bilirubin - Negative Bedside Urine Ketone +++ 80 Urine Specific [place] 1.020 Bedside Urine Occult Blood +/- Bedside Urine pH 6.0 Bedside Urine Protein + 30 Bedside Urine Urobilinogen - Negative Bedside Urine Nitrite - Negative Bedside Urine Leukocytes +++ 500 Esterase Discharge Plan Departure Patient Disposition: Home Clinical Impression: Abdominal pain, vomiting, and diarrhea Instructions: DI for Viral Gastroenteritis -- Adult Activity Restrictions/Additional Instructions: Please use Zofran as prescribed for nausea. I recommend taking it 30 minutes prior to drinking fluids. Stick with clear fluids and a bland diet for the next 24-48 hours until you are feeling better. As we discussed, you are likely suffering from viral gastroenteritis. This typically does improve over a few days. It is important for you to drink lots of fluids so as to avoid dehydration. Please return to the emergency department if you are not able to keep fluids down despite nausea medication or new symptoms such as persistent or worsening abdominal pain, or pain that is associated with fever, or other symptoms that are concerning to you You may continue to use Imodium, Pepto-Bismol, Pepcid or the like. Please follow-up with your family doctor regarding your ED visit today in for recheck, ideally early next week. Prescriptions: New ondansetron 4 mg tablet,disintegrating 4 mg PO Q8H 4 Days Qty: 12 0RF No Action fluconazole 150 mg tablet 150 mg PO DAILY Qty: 2 1RF alprazolam 0.5 mg tablet 0.5 mg PO DAILY PRN (Reason: anxiety) Qty: 30 0RF progesterone micronized 100 mg capsule 100 mg PO QAM Qty: 30 0RF Rx Instructions: If desire to have menses, can take for 21 days, then off 7 days; repeat cycle. If desire to not have menses, take daily without interruption sulfamethoxazole-trimethoprim [Bactrim DS] 800-160 mg tablet 1 tab PO BID Qty: 10 0RF Referrals: Serenity Saldaña DO [Primary Care Provider] - Stand Alone Forms: Patient Portal/API/Survey, Work Release Note
[2024-08-19] MEDS: SODIUM CHLORIDE 0.9% 1,000 ML 1000 ML IV (09:03)
[2024-08-19] MEDS: ONDANSETRON 4 MG/2 ML INJ IV (09:04)
[2024-08-19 09:11] LABS: Add Manual Diff / Slide Review NO; Basophils Absolute Auto 0 /uL (0-100); Basophils Percent Auto 0.2 % (0-2); Eosinophils Absolute Auto 0 /uL (0-450); Eosinophils Percent Auto 0.2 % (2-4); Hematocrit 41.5 % (36-46); Hemoglobin 13.9 g/dL (12.0-16.0); Lymphocytes Absolute Auto 1200 /uL (1100-4500); Lymphocytes Percent Auto 11.4 % (25-40); Mean Corpuscular HGB Conc 33.5 % (30-36); Mean Corpuscular Hemoglobin 27.7 PG (26-34); Mean Corpuscular Volume 82.5 fL (80-100); Monocytes Absolute Auto 800 /uL (0-900); Monocytes Percent Auto 7.3 % (3-14); Neutrophils Absolute Auto 8400 /uL (1500-7000); Neutrophils Percent Auto 80.9 % (50-75); Platelet Count 363 X10^3/uL (150-400); Red Blood Cell Count 5.03 X10^6/uL (4.0-5.2); Red Cell Distribution Width 14.8 % (11.6-14.8); White Blood Cell Count 10.3 X10^3/uL (4.5-11.0)
[2024-08-19 09:28] LABS: Alanine Aminotransferase 36 IU/L (<35); Albumin 4.8 g/dL (3.5-5.0); Albumin Globulin Ratio 1.5 (1.0-2.8); Alkaline Phosphatase 60 U/L (38-126); Aspartate Aminotransferase 62 IU/L (14-36); BUN Creatinine Ratio 18.9 (6-22); Blood Urea Nitrogen 14 mg/dL (7-17); Calcium 9.8 mg/dL (8.4-10.2); Carbon Dioxide 21 mmol/L (22-32); Chloride 101 mmol/L (98-107); Estimated Glomerular Filt Rate > 60 mL/min (>60); Globulin 3.2 g/dL (1.7-4.1); Glucose 92 mg/dL (70-99); HEMOLYSIS 20 (0-50); Potassium 3.7 mmol/L (3.4-5.1); Sodium 137 mmol/L (137-145)
[2024-08-19 09:32] LABS: Lipase 71 U/L (23-300)
[2024-08-19] MEDS: FAMOTIDINE 20 MG/2 ML VIAL IV (09:43)
[2024-08-19] MEDS: MAG HYDROX/ALUM/SIMETH 30 ML UDC PO (09:43)
[2024-08-19 09:49] LABS: Urine Volume 10mL (spun)
[2024-08-19 09:50] LABS: Bacteria Urine Moderate (10-30); Culture Indicated Urine Specimen Cultured; Mucus Urine 1+ (Negative); RBC Urine 5-10/HPF (0-5/HPF); Squamous Epithelial Cell Urine 5-10 /HPF (0-5/HPF); WBC Urine 10-30/HPF (0-5/HPF)
[2024-08-19] MEDS: LORazepam 0.5 MG TABLET 1 MG PO (10:19)
== END 2024-08-19 11:35 | disposition home or self-care (01) ==
PROVIDERS: Emergency Provider Student in an Organized Health Care Education/Training Program; PCP Family Medicine
DX: R10.13 Epigastric pain (principal); R11.10 Vomiting, unspecified; R19.7 Diarrhea, unspecified
CPT/HCPCS: 36415; 80053; 81003; 81015; 81025; 83690; 85025; 87086; 96361; 96374; 96375; 99284; J2405

== ENCOUNTER → 2025-01-24 16:46 | Outpatient (CLI) | payer OTHER, SELFPAY ==
[2025-01-26 13:40] LABS: Trichomoas vaginalis Negative (Negative)
== END ==
PROVIDERS: PCP Family Medicine; Visit Provider Obstetrics & Gynecology
DX: N89.8 Other specified noninflammatory disorders of vagina (principal); R30.0 Dysuria; N93.9 Abnormal uterine and vaginal bleeding, unspecified; R10.11 Right upper quadrant pain
CPT/HCPCS: 81514; 87086

== ENCOUNTER → 2025-01-24 17:23 | Outpatient (CLI) | payer OTHER, SELFPAY ==
[2025-01-24 17:34] LABS: Add Manual Diff / Slide Review NO; Hematocrit 40.1 % (36-46); Hemoglobin 13.2 g/dL (12.0-16.0); Lymphocytes Absolute Auto 3000 /uL (1100-4500); Mean Corpuscular HGB Conc 32.9 % (30-36); Mean Corpuscular Hemoglobin 26.6 PG (26-34); Mean Corpuscular Volume 81.0 fL (80-100); Platelet Count 382 X10^3/uL (150-400)
[2025-01-24 18:08] LABS: Alanine Aminotransferase 13 IU/L (<35); Albumin 5.1 g/dL (3.5-5.0); Albumin Globulin Ratio 1.6 (1.0-2.8); Alkaline Phosphatase 44 U/L (38-126); Blood Urea Nitrogen 14 mg/dL (7-17); Calcium 10.1 mg/dL (8.4-10.2); Carbon Dioxide 28 mmol/L (22-32); Chloride 98 mmol/L (98-107); Estimated Glomerular Filt Rate > 60 mL/min (>60); Globulin 3.1 g/dL (1.7-4.1); Glucose 97 mg/dL (70-99); HEMOLYSIS < 15 (0-50); Lipase 85 U/L (23-300); Potassium 4.0 mmol/L (3.4-5.1); Sodium 138 mmol/L (137-145); Total Protein 8.2 g/dL (6.3-8.2)
[2025-01-24 18:25] LABS: Follicle Stimulating Hormone 5.28 mIU/mL
[2025-01-24 18:39] LABS: TSH w/ Reflex to FT4 2.52 uIU/mL (0.47-4.68)
[2025-01-24 18:41] LABS: Estradiol, Total 81.4 pg/mL
== END ==
PROVIDERS: PCP Family Medicine; Referring Provider Obstetrics & Gynecology; Visit Provider Obstetrics & Gynecology
DX: N93.9 Abnormal uterine and vaginal bleeding, unspecified (principal); R10.11 Right upper quadrant pain
CPT/HCPCS: 36415; 80053; 81514; 82670; 83001; 83690; 84146; 84443; 85025; 87086

== ENCOUNTER → 2025-01-31 15:07 | Outpatient (CLI) | payer OTHER, SELFPAY ==
[2025-01-31 16:18] LABS: Alanine Aminotransferase 12 IU/L (<35); Albumin 4.8 g/dL (3.5-5.0); Albumin Globulin Ratio 1.8 (1.0-2.8); Alkaline Phosphatase 40 U/L (38-126); Cholesterol 173 mg/dL (140-199); Globulin 2.6 g/dL (1.7-4.1); HDL Cholesterol 86 mg/dL (40-60); HEMOLYSIS < 15 (0-50); Total Protein 7.4 g/dL (6.3-8.2); Triglycerides 60 mg/dL (35-150)
[2025-01-31 16:24] LABS: Hemoglobin A1C% w Est Avg Glu 5.2 % (4.0-6.0)
== END ==
PROVIDERS: PCP Family Medicine; Referring Provider Family Medicine; Visit Provider Family Medicine
DX: Z13.1 Encounter for screening for diabetes mellitus (principal); E78.5 Hyperlipidemia, unspecified; R10.9 Unspecified abdominal pain; G89.29 Other chronic pain; R16.0 Hepatomegaly, not elsewhere classified; Z79.899 Other long term (current) drug therapy
CPT/HCPCS: 36415; 80061; 80076; 82105; 83036

== ENCOUNTER → 2025-02-03 08:46 | Outpatient (CLI) | payer OTHER, SELFPAY ==
--- NOTE | 2025-02-03 08:47 | DI.US.S_ITS ---
PROCEDURE: US ABDOMEN LIMITED INDICATIONS: chronic abdominal pain, hepatomegaly TECHNIQUE: Real-time scanning was performed of the abdominal and retroperitoneal organs, with image documentation. COMPARISON: None. FINDINGS: Liver: Minimal hepatomegaly with the liver measuring 16 cm, and homogeneous in echotexture. Gallbladder: Surgically absent Biliary ducts: Intrahepatic bile ducts are non-dilated. Extrahepatic bile duct caliber measures 3 mm. Normal is 6-7 mm or less in diameter, or 10 mm or less post-cholecystectomy. Pancreas: Visualized portions of the pancreas are sonographically normal. Miscellaneous: No free abdominal fluid. IMPRESSION: Status post cholecystectomy. No acute sonographic abnormality. Minimal hepatomegaly with the liver measuring 16 cm. Normal hepatic echotexture. Dictated by: Erika Rocha M.D. on 02/05/2025 at 13:41 Approved by: Erika Rocha M.D. on 02/05/2025 at 13:43
== END ==
PROVIDERS: PCP Family Medicine; Referring Provider Family Medicine; Visit Provider Family Medicine
DX: R16.0 Hepatomegaly, not elsewhere classified (principal); R10.9 Unspecified abdominal pain; G89.29 Other chronic pain; Z90.49 Acquired absence of other specified parts of digestive tract
CPT/HCPCS: 76705

== ENCOUNTER → 2025-02-10 15:09 | Outpatient (CLI) | payer OTHER, SELFPAY | PROVIDERS: PCP Family Medicine; Referring Provider Obstetrics & Gynecology; Visit Provider Obstetrics & Gynecology | DX: R30.0 Dysuria (principal) | CPT/HCPCS: 87086 ==

== ENCOUNTER → 2025-02-10 15:22 | Outpatient (CLI) | payer OTHER, SELFPAY ==
[2025-02-11 04:10] LABS: Hepatitis A Antibody IgM Negative (Negative); Hepatitis B Core Antibody IgM Negative (Negative); Hepatitis C Antibody Non Reactive (Non Reactive)
== END ==
PROVIDERS: PCP Family Medicine; Referring Provider Obstetrics & Gynecology; Visit Provider Obstetrics & Gynecology
DX: R16.0 Hepatomegaly, not elsewhere classified (principal)
CPT/HCPCS: 36415; 80074; 87086

== ENCOUNTER → 2025-02-14 08:30 | Outpatient (CLI) | payer OTHER, SELFPAY ==
--- NOTE | 2025-02-14 08:35 | DI.MG.S_ITS ---
MM screening mammo BI: 02/14/2025. BI-RADS: 1 CLINICAL: 39-year old female for bilateral screening mammogram. Tyrer-Cuzick lifetime risk of 4.7%. No personal or first-degree family history of breast cancer. PRIOR EXAMS 02/17/2024, 10/27/2023, 09/24/2023. MAMMOGRAPHY TECHNIQUE: 2D and 3D (tomosynthesis) digital mammographic views obtained, with additional images as needed for full coverage. Current study was also evaluated with a Computer Aided Detection (CAD) system. DENSITY B. There are scattered areas of fibroglandular density. MAMMOGRAPHY FINDINGS Bilateral: No suspicious mass, asymmetry, microcalcification, or other abnormality seen. IMPRESSION: * No evidence of malignancy. RECOMMENDATIONS Bilateral * Annual screening mammography. OVERALL ASSESSMENT CATEGORY BI-RADS-1: Negative. The [employer] recommends annual screening mammography beginning at age 40 for women with average risk of breast cancer. ELECTRONICALLY SIGNED: Shante Jasso M.D. on 02/15/2025 at 01:04:51 PM PT Interpreting Station ID: [id number]
== END ==
LOC: MAMMO 08:31
PROVIDERS: PCP Family Medicine; Referring Provider Family Medicine; Visit Provider Family Medicine
DX: Z12.31 Encounter for screening mammogram for malignant neoplasm of breast (principal)
CPT/HCPCS: 77063; 77066; 77067; G0279